=== PATIENT | male | born 1955 | race Caucasian/White ===

== ENCOUNTER 2020-10-10 12:36 | Inpatient (IN) | payer OTHER, SELFPAY ==
[~2020-10-10] VITALS: Ht 162.6 cm; Wt 115.7 kg
[2020-10-10 12:44] VITALS: BP 97/59
[2020-10-10] MEDS ORDERED: NACL 0.9% 1,000 ML IV ONE (12:45)
[2020-10-10 13:08] LABS: BASOPHILS % (AUTO) 0.1 % (0.0-2.0); HEMATOCRIT 49.1 % (36-52); HEMOGLOBIN 16.8 g/dL (12.0-18.0); LYMPHOCYTES # (AUTO) 0.6 K/uL (2.0-11.5); LYMPHOCYTES % (AUTO) 8.9 % (20.5-51.1); MEAN CORPUSCULAR HEMOGLOBIN 31 pg (27-31); MEAN CORPUSCULAR HGB CONC 34 g/dL (33-37); MEAN CORPUSCULAR VOLUME 92.1 fL (80-94); MONOCYTES # (AUTO) 0.6 K/uL (0.8-1.0); MONOCYTES % (AUTO) 8.1 % (1.7-9.3); NEUTROPHILS # (AUTO) 5.6 K/uL (1.8-7.7); NEUTROPHILS % (AUTO) 82.9 % (42.2-75.2); PLATELET COUNT (AUTO) 178 K/uL (140-450); RED BLOOD CELL COUNT(AUTO) 5.33 MIL/uL (4.20-6.10); RED CELL DISTRIBUTION WIDTH 13.1 % (11.6-13.7); WHITE BLOOD COUNT (AUTO) 6.8 K/uL (4.8-10.8)
[2020-10-10 13:21] LABS: ANION GAP 19.1 (8-16); CARBON DIOXIDE 24.5 mmol/L (21-32); CREATININE 1.7 mg/dL (0.6-1.3); POTASSIUM 3.6 mmol/L (3.5-5.1)
[2020-10-10 13:27] LABS: ALBUMIN 3.9 g/dL (3.4-5.0); TOTAL BILIRUBIN 0.8 mg/dL (0.0-1.0)
[2020-10-10 13:28] LABS: PROTHROMBIN TIME 10.3 secs (10.8-13.4)
[2020-10-10] MEDS ORDERED: AZITHROMYCIN 1,000 MG in DEXTROSE 5% 500 ML IV SCH (13:50)
[2020-10-10 13:53] LABS: RSV NEGATIVE (NEGATIVE)
[2020-10-10 13:53] LABS: LACTATE DEHYDROGENASE 318 U/L (85-227)
[2020-10-10] MEDS ORDERED: ONDANSETRON 4 MG/2 ML VIAL IM/IVP PRN (14:20)
[2020-10-10] MEDS ORDERED: ZOLPIDEM 5 MG TAB PO PRN (14:20)
[2020-10-10] MEDS ORDERED: DOCUSATE SODIUM 100 MG GELCAP PO PRN (14:20)
[2020-10-10] MEDS ORDERED: POTASSIUM CHLORIDE 10 MEQ TABER PO PRN (14:20)
[2020-10-10] MEDS ORDERED: cefTRIAXone 1,000 MG VIAL ONE (14:21)
[2020-10-10] MEDS ORDERED: ALBUTEROL HFA MDI 90 MCG/ACTUATION 8 GM INH PRN (14:25)
[2020-10-10] MEDS: ACETAMINOPHEN 325 MG TAB PO PRN ×2 (14:26→16:56)
[2020-10-10] MEDS ORDERED: remdesivir CLINICAL MONITORING 1 EA MISC MC PRN (14:40)
[2020-10-10] MEDS ORDERED: OSELTAMIVIR PHOSPHATE 75 MG CAP PO SCH (14:50)
[2020-10-10 14:59] LABS: CHOL/HDL RATIO 5.3 (1-4.5); FREE T4 (FREE THYROXINE) 0.86 ng/dL (0.76-1.46); MAGNESIUM 2.5 mg/dL (1.8-2.4); PHOSPHORUS 3.5 mg/dL (2.5-4.9); THYROID STIMULATING HORMONE 2.47 uIU/mL (0.34-3.74)
[2020-10-10] MEDS: NACL 0.9% 1,000 ML IV SCH (15:03)
[2020-10-10 15:14] LABS: APPEARANCE,URINE CLEAR (CLEAR); BILIRUBIN,URINE 1+ (NEGATIVE); BLOOD, URINE TRACE-I (NEGATIVE); COLOR,URINE YELLOW (YELLOW); LEUKOCYTE ESTERASE ,URINE TRACE (NEGATIVE); NITRITE, URINE NEGATIVE (NEGATIVE); PH,URINE 5.5 (5.0-9.0); UGLUCOSE NEGATIVE (NEGATIVE)
[2020-10-10] MEDS ORDERED: AZITHROMYCIN 500 MG INJ VIAL IV ONE (15:18)
[2020-10-10 15:29] LABS: BARBITURATE, URINE NEGATIVE ng/ml (NEG <=200); BENZODIAZEPINE, URINE NEGATIVE ng/mL (NEG <=200); CANNABINOID, URINE NEGATIVE ng/mL (NEG <=50); COCAINE, URINE NEGATIVE ng/mL (NEG <=300); OPIATE, URINE NEGATIVE ng/mL (NEG <=2000); PHENCYCLIDINE SCREEN,URINE NEGATIVE ng/mL (NEG <=25)
[2020-10-10 16:11] LABS: RBC,URINE FEW /HPF (0-5); WBC,URINE 0-5 /HPF (0-5)
[2020-10-10 16:13] LABS: C-REACTIVE PROTEIN QUANT 8.6 mg/dL (0.0-0.9)
[2020-10-10 16:30] VITALS: BP 150/90
[2020-10-10] MEDS ORDERED: REMDESIVIR (EUA) 200 MG in NACL 0.9% 100 ML IV SCH (17:00)
[2020-10-10 20:00] VITALS: BP 142/89
[2020-10-10] MEDS: HYDROcodone/APAP 7.5/325 MG 1 TAB PO PRN (21:32)
[2020-10-11] VITALS: BP 129/85
[2020-10-11] MEDS: NACL 0.9% 1,000 ML IV SCH ×2 (00:20→21:26)
[2020-10-11 00:30] VITALS: BP 132/82
[2020-10-11 04:00] VITALS: BP_SYST 132; BP_SYST 161; BP_DIAS 82; BP_DIAS 94
[2020-10-11 05:55] LABS: BASOPHILS % (AUTO) 0.2 % (0.0-2.0); EOSINOPHILS % (AUTO) 0.1 % (0.0-4.0); HEMATOCRIT 44.6 % (36-52); HEMOGLOBIN 15.1 g/dL (12.0-18.0); LYMPHOCYTES # (AUTO) 0.7 K/uL (2.0-11.5); LYMPHOCYTES % (AUTO) 11.6 % (20.5-51.1); MEAN CORPUSCULAR HEMOGLOBIN 31 pg (27-31); MEAN CORPUSCULAR HGB CONC 34 g/dL (33-37); MEAN CORPUSCULAR VOLUME 92.3 fL (80-94); MONOCYTES # (AUTO) 0.5 K/uL (0.8-1.0); MONOCYTES % (AUTO) 8.2 % (1.7-9.3); NEUTROPHILS # (AUTO) 4.7 K/uL (1.8-7.7); NEUTROPHILS % (AUTO) 79.9 % (42.2-75.2); PLATELET COUNT (AUTO) 175 K/uL (140-450); RED BLOOD CELL COUNT(AUTO) 4.83 MIL/uL (4.20-6.10); RED CELL DISTRIBUTION WIDTH 13.1 % (11.6-13.7); WHITE BLOOD COUNT (AUTO) 5.9 K/uL (4.8-10.8)
[2020-10-11 06:48] LABS: ALBUMIN 3.2 g/dL (3.4-5.0); ANION GAP 16.7 (8-16); CARBON DIOXIDE 24.9 mmol/L (21-32); CREATININE 1.2 mg/dL (0.6-1.3); POTASSIUM 3.6 mmol/L (3.5-5.1); TOTAL BILIRUBIN 0.8 mg/dL (0.0-1.0)
[2020-10-11 08:07] LABS: T4 (THYROXINE) 8.8 ug/dL (4.5-12.0)
[2020-10-11] MEDS ORDERED: COMMUNICATION ORDER MC SCH (09:00)
[2020-10-11] MEDS: PANTOPRAZOLE 40 MG TABEC PO SCH (09:44)
[2020-10-11] MEDS: ZINC SULF 220 MG CAP PO SCH (09:44)
[2020-10-11] MEDS: ASCORBIC ACID 500 MG TAB PO SCH (09:44)
[2020-10-11 10:44] VITALS: BP 140/88
[2020-10-11] MEDS: ACETAMINOPHEN 325 MG TAB PO PRN (12:33)
[2020-10-11] MEDS: REMDESIVIR (EUA) 100 MG in NACL 0.9% 100 ML IV SCH (17:32)
[2020-10-11 18:17] VITALS: BP 132/91
[2020-10-11 20:00] VITALS: BP 141/88
[2020-10-12] VITALS: BP 115/71
[2020-10-12 04:00] VITALS: BP 147/66
[2020-10-12 05:36] LABS: BASOPHILS % (AUTO) 0.1 % (0.0-2.0); HEMATOCRIT 45.5 % (36-52); HEMOGLOBIN 15.1 g/dL (12.0-18.0); LYMPHOCYTES # (AUTO) 0.8 K/uL (2.0-11.5); LYMPHOCYTES % (AUTO) 9.9 % (20.5-51.1); MEAN CORPUSCULAR HEMOGLOBIN 31 pg (27-31); MEAN CORPUSCULAR HGB CONC 33 g/dL (33-37); MEAN CORPUSCULAR VOLUME 92.9 fL (80-94); MONOCYTES # (AUTO) 0.6 K/uL (0.8-1.0); MONOCYTES % (AUTO) 7.7 % (1.7-9.3); NEUTROPHILS # (AUTO) 6.5 K/uL (1.8-7.7); NEUTROPHILS % (AUTO) 82.3 % (42.2-75.2); PLATELET COUNT (AUTO) 205 K/uL (140-450); RED BLOOD CELL COUNT(AUTO) 4.89 MIL/uL (4.20-6.10); RED CELL DISTRIBUTION WIDTH 13.1 % (11.6-13.7); WHITE BLOOD COUNT (AUTO) 7.8 K/uL (4.8-10.8)
[2020-10-12] MEDS: NACL 0.9% 1,000 ML IV SCH ×2 (06:09→16:53)
[2020-10-12 06:13] LABS: ALBUMIN 3.1 g/dL (3.4-5.0); ANION GAP 14.6 (8-16); CARBON DIOXIDE 26.3 mmol/L (21-32); CREATININE 1.1 mg/dL (0.6-1.3); POTASSIUM 3.9 mmol/L (3.5-5.1); TOTAL BILIRUBIN 0.6 mg/dL (0.0-1.0)
[2020-10-12] MEDS: PANTOPRAZOLE 40 MG TABEC PO SCH (09:00)
[2020-10-12] MEDS: ASCORBIC ACID 500 MG TAB PO SCH (09:00)
[2020-10-12] MEDS: ZINC SULF 220 MG CAP PO SCH (09:00)
[2020-10-12 09:13] VITALS: BP 152/84
[2020-10-12 15:56] VITALS: BP 133/82
[2020-10-12 15:57] VITALS: BP 159/99
[2020-10-12] MEDS: ACETAMINOPHEN 325 MG TAB PO PRN (15:58)
[2020-10-12] MEDS: REMDESIVIR (EUA) 100 MG in NACL 0.9% 100 ML IV SCH (16:53)
[2020-10-12 20:00] VITALS: BP 145/95
[2020-10-13] VITALS: BP 151/87
[2020-10-13] MEDS: guaiFENesin DM 200/20 MG-10 ML 10 ML UDC PO PRN (00:03)
[2020-10-13] MEDS: NACL 0.9% 1,000 ML IV SCH ×3 (02:45→22:24)
[2020-10-13 05:00] VITALS: BP 152/90
[2020-10-13 06:09] LABS: BASOPHILS % (AUTO) 0.2 % (0.0-2.0); HEMATOCRIT 43.1 % (36-52); HEMOGLOBIN 14.4 g/dL (12.0-18.0); LYMPHOCYTES # (AUTO) 0.8 K/uL (2.0-11.5); LYMPHOCYTES % (AUTO) 8.1 % (20.5-51.1); MEAN CORPUSCULAR HEMOGLOBIN 31 pg (27-31); MEAN CORPUSCULAR HGB CONC 33 g/dL (33-37); MEAN CORPUSCULAR VOLUME 93.9 fL (80-94); MONOCYTES # (AUTO) 0.7 K/uL (0.8-1.0); MONOCYTES % (AUTO) 7.2 % (1.7-9.3); NEUTROPHILS # (AUTO) 8.1 K/uL (1.8-7.7); NEUTROPHILS % (AUTO) 84.5 % (42.2-75.2); PLATELET COUNT (AUTO) 225 K/uL (140-450); RED BLOOD CELL COUNT(AUTO) 4.59 MIL/uL (4.20-6.10); RED CELL DISTRIBUTION WIDTH 12.8 % (11.6-13.7); WHITE BLOOD COUNT (AUTO) 9.6 K/uL (4.8-10.8)
[2020-10-13 06:47] LABS: ANION GAP 10.5 (8-16); CARBON DIOXIDE 27.6 mmol/L (21-32); CREATININE 0.9 mg/dL (0.6-1.3); POTASSIUM 4.1 mmol/L (3.5-5.1); TOTAL BILIRUBIN 0.4 mg/dL (0.0-1.0)
[2020-10-13 08:00] VITALS: BP 173/102
[2020-10-13] MEDS: lisinopriL 20 MG TAB PO SCH (08:55)
[2020-10-13] MEDS: METOPROLOL 25 MG TAB PO SCH ×2 (08:55→20:32)
[2020-10-13] MEDS: PANTOPRAZOLE 40 MG TABEC PO SCH (08:56)
[2020-10-13] MEDS: ZINC SULF 220 MG CAP PO SCH (08:56)
[2020-10-13] MEDS: ASCORBIC ACID 500 MG TAB PO SCH (08:58)
[2020-10-13 12:00] VITALS: BP 152/92
[2020-10-13 16:00] VITALS: BP 136/89
[2020-10-13] MEDS: REMDESIVIR (EUA) 100 MG in NACL 0.9% 100 ML IV SCH (17:22)
[2020-10-13] MEDS: ACETAMINOPHEN 325 MG TAB PO PRN (17:28)
[2020-10-13 20:00] VITALS: BP 139/88
[2020-10-14] VITALS: BP 148/83
[2020-10-14] MEDS: HYDROcodone/APAP 7.5/325 MG 1 TAB PO PRN (03:47)
[2020-10-14] MEDS: guaiFENesin DM 200/20 MG-10 ML 10 ML UDC PO PRN ×2 (03:48→20:31)
[2020-10-14 04:00] VITALS: BP 146/86
[2020-10-14 06:39] LABS: ALBUMIN 2.9 g/dL (3.4-5.0); CARBON DIOXIDE 26.1 mmol/L (21-32); CREATININE 0.9 mg/dL (0.6-1.3); POTASSIUM 4.1 mmol/L (3.5-5.1); TOTAL BILIRUBIN 0.6 mg/dL (0.0-1.0)
[2020-10-14 08:00] VITALS: BP 160/97
[2020-10-14] MEDS: ZINC SULF 220 MG CAP PO SCH (09:21)
[2020-10-14] MEDS: ASCORBIC ACID 500 MG TAB PO SCH (09:21)
[2020-10-14] MEDS: lisinopriL 20 MG TAB PO SCH (09:21)
[2020-10-14] MEDS: PANTOPRAZOLE 40 MG TABEC PO SCH (09:21)
[2020-10-14] MEDS: METOPROLOL 25 MG TAB PO SCH ×2 (09:22→20:27)
[2020-10-14] MEDS: NACL 0.9% 1,000 ML IV SCH ×3 (09:22→20:42)
[2020-10-14 12:00] VITALS: BP 139/93
[2020-10-14] MEDS: ACETAMINOPHEN 325 MG TAB PO PRN ×2 (12:01→20:31)
[2020-10-14 16:00] VITALS: BP 135/80
[2020-10-14] MEDS: REMDESIVIR (EUA) 100 MG in NACL 0.9% 100 ML IV SCH (17:25)
[2020-10-14 20:00] VITALS: BP 155/92
[2020-10-14] MEDS: OSELTAMIVIR PHOSPHATE 75 MG CAP PO SCH (21:28)
[2020-10-15] VITALS (7 sets, daily range): BP systolic 143–170; BP diastolic 83–110
[2020-10-15] MEDS: guaiFENesin DM 200/20 MG-10 ML 10 ML UDC PO PRN ×4 (03:03→21:50)
[2020-10-15] MEDS: ACETAMINOPHEN 325 MG TAB PO PRN ×3 (03:17→15:24)
[2020-10-15] MEDS: ASCORBIC ACID 500 MG TAB PO SCH (08:04)
[2020-10-15] MEDS: ZINC SULF 220 MG CAP PO SCH (08:04)
[2020-10-15] MEDS: PANTOPRAZOLE 40 MG TABEC PO SCH (08:04)
[2020-10-15] MEDS: METOPROLOL 25 MG TAB PO SCH ×2 (08:04→21:48)
[2020-10-15] MEDS: OSELTAMIVIR PHOSPHATE 75 MG CAP PO SCH ×2 (08:04→21:48)
[2020-10-15] MEDS: NACL 0.9% 1,000 ML IV SCH (08:05)
[2020-10-15] MEDS: lisinopriL 20 MG TAB PO SCH (08:05)
[2020-10-15 16:35] LABS: BASOPHILS % (AUTO) 0.2 % (0.0-2.0); HEMATOCRIT 43.1 % (36-52); HEMOGLOBIN 14.2 g/dL (12.0-18.0); LYMPHOCYTES # (AUTO) 0.3 K/uL (2.0-11.5); LYMPHOCYTES % (AUTO) 2.3 % (20.5-51.1); MEAN CORPUSCULAR HEMOGLOBIN 31 pg (27-31); MEAN CORPUSCULAR HGB CONC 33 g/dL (33-37); MEAN CORPUSCULAR VOLUME 94.5 fL (80-94); MONOCYTES # (AUTO) 0.4 K/uL (0.8-1.0); MONOCYTES % (AUTO) 3.2 % (1.7-9.3); NEUTROPHILS # (AUTO) 12.6 K/uL (1.8-7.7); NEUTROPHILS % (AUTO) 94.3 % (42.2-75.2); PLATELET COUNT (AUTO) 321 K/uL (140-450); RED BLOOD CELL COUNT(AUTO) 4.57 MIL/uL (4.20-6.10); RED CELL DISTRIBUTION WIDTH 13.4 % (11.6-13.7); WHITE BLOOD COUNT (AUTO) 13.3 K/uL (4.8-10.8)
[2020-10-15 16:53] LABS: ALBUMIN 2.6 g/dL (3.4-5.0); ANION GAP 13.2 (8-16); CREATININE 0.9 mg/dL (0.6-1.3); POTASSIUM 4.2 mmol/L (3.5-5.1); TOTAL BILIRUBIN 0.9 mg/dL (0.0-1.0)
[2020-10-15] MEDS: HYDROcodone/APAP 7.5/325 MG 1 TAB PO PRN (23:12)
[2020-10-16] VITALS: BP 139/84
[2020-10-16] MEDS: NACL 0.9% 1,000 ML IV SCH ×3 (00:20→20:20)
[2020-10-16 04:00] VITALS: BP 153/83
[2020-10-16] MEDS: HYDROcodone/APAP 7.5/325 MG 1 TAB PO PRN ×4 (04:06→22:35)
[2020-10-16] MEDS: guaiFENesin DM 200/20 MG-10 ML 10 ML UDC PO PRN ×3 (04:06→16:36)
[2020-10-16 06:28] LABS: BASOPHILS % (AUTO) 0.3 % (0.0-2.0); EOSINOPHILS % (AUTO) 0.1 % (0.0-4.0); HEMATOCRIT 42.8 % (36-52); HEMOGLOBIN 14.1 g/dL (12.0-18.0); LYMPHOCYTES # (AUTO) 0.6 K/uL (2.0-11.5); MEAN CORPUSCULAR HEMOGLOBIN 31 pg (27-31); MEAN CORPUSCULAR HGB CONC 33 g/dL (33-37); MEAN CORPUSCULAR VOLUME 93.4 fL (80-94); MONOCYTES # (AUTO) 0.9 K/uL (0.8-1.0); MONOCYTES % (AUTO) 5.1 % (1.7-9.3); NEUTROPHILS # (AUTO) 16.1 K/uL (1.8-7.7); PLATELET COUNT (AUTO) 339 K/uL (140-450); RED BLOOD CELL COUNT(AUTO) 4.58 MIL/uL (4.20-6.10); RED CELL DISTRIBUTION WIDTH 13.3 % (11.6-13.7); WHITE BLOOD COUNT (AUTO) 17.6 K/uL (4.8-10.8)
[2020-10-16 06:44] LABS: ANION GAP 11.3 (8-16); CARBON DIOXIDE 28.3 mmol/L (21-32); CREATININE 0.9 mg/dL (0.6-1.3); POTASSIUM 4.6 mmol/L (3.5-5.1)
[2020-10-16] MEDS: ACETAMINOPHEN 325 MG TAB PO PRN (06:44)
[2020-10-16 06:49] LABS: MAGNESIUM 2.6 mg/dL (1.8-2.4); PHOSPHORUS 2.8 mg/dL (2.5-4.9)
[2020-10-16 07:20] LABS: LYMPHOCYTES % (AUTO) 3.2 % (20.5-51.1); NEUTROPHILS % (AUTO) 91.3 % (42.2-75.2)
[2020-10-16 08:00] VITALS: BP 161/94
[2020-10-16] MEDS: ASCORBIC ACID 500 MG TAB PO SCH (09:53)
[2020-10-16] MEDS: OSELTAMIVIR PHOSPHATE 75 MG CAP PO SCH ×2 (09:53→20:25)
[2020-10-16] MEDS: METOPROLOL 25 MG TAB PO SCH ×2 (09:53→20:25)
[2020-10-16] MEDS: PANTOPRAZOLE 40 MG TABEC PO SCH (09:54)
[2020-10-16] MEDS: ZINC SULF 220 MG CAP PO SCH (09:54)
[2020-10-16] MEDS: lisinopriL 20 MG TAB PO SCH (09:54)
[2020-10-16 12:00] VITALS: BP 150/92
[2020-10-16] MEDS ORDERED: LORazepam 2 MG/ML VIAL IM/IVP PRN (14:15)
[2020-10-16] MEDS: BENZONATATE 100 MG CAPLF PO PRN ×2 (14:32→22:35)
[2020-10-16 16:00] VITALS: BP 132/67
[2020-10-16] MEDS ORDERED: lisinopriL 20 MG TAB PO SCH (17:25)
[2020-10-16 20:00] VITALS: BP 146/75
[2020-10-17] VITALS: BP 120/66
[2020-10-17] MEDS: guaiFENesin DM 200/20 MG-10 ML 10 ML UDC PO PRN ×3 (03:07→17:35)
[2020-10-17 04:00] VITALS: BP 139/80
[2020-10-17] MEDS: LORazepam 2 MG/ML VIAL IM/IVP PRN ×2 (06:17→21:10)
[2020-10-17] MEDS: NACL 0.9% 1,000 ML IV SCH ×2 (06:20→14:23)
[2020-10-17] MEDS: BENZONATATE 100 MG CAPLF PO PRN ×3 (06:40→23:04)
[2020-10-17 06:41] LABS: BASOPHILS % (AUTO) 0.3 % (0.0-2.0); EOSINOPHILS % (AUTO) 0.2 % (0.0-4.0); HEMATOCRIT 38.1 % (36-52); HEMOGLOBIN 12.6 g/dL (12.0-18.0); LYMPHOCYTES # (AUTO) 0.5 K/uL (2.0-11.5); LYMPHOCYTES % (AUTO) 3.3 % (20.5-51.1); MEAN CORPUSCULAR HEMOGLOBIN 31 pg (27-31); MEAN CORPUSCULAR HGB CONC 33 g/dL (33-37); MEAN CORPUSCULAR VOLUME 92.6 fL (80-94); MONOCYTES # (AUTO) 0.8 K/uL (0.8-1.0); MONOCYTES % (AUTO) 5.3 % (1.7-9.3); NEUTROPHILS # (AUTO) 13.3 K/uL (1.8-7.7); NEUTROPHILS % (AUTO) 90.9 % (42.2-75.2); PLATELET COUNT (AUTO) 292 K/uL (140-450); RED BLOOD CELL COUNT(AUTO) 4.12 MIL/uL (4.20-6.10); RED CELL DISTRIBUTION WIDTH 13.1 % (11.6-13.7); WHITE BLOOD COUNT (AUTO) 14.6 K/uL (4.8-10.8)
[2020-10-17 06:56] LABS: MAGNESIUM 2.3 mg/dL (1.8-2.4); PHOSPHORUS 3.6 mg/dL (2.5-4.9)
[2020-10-17 07:12] LABS: ANION GAP 14.5 (8-16); CARBON DIOXIDE 25.8 mmol/L (21-32); CREATININE 0.9 mg/dL (0.6-1.3); POTASSIUM 4.3 mmol/L (3.5-5.1)
[2020-10-17 08:00] VITALS: BP 135/82
[2020-10-17] MEDS: lisinopriL 20 MG TAB PO SCH (09:06)
[2020-10-17] MEDS: METOPROLOL 25 MG TAB PO SCH ×2 (09:07→20:39)
[2020-10-17] MEDS: ZINC SULF 220 MG CAP PO SCH (09:07)
[2020-10-17] MEDS: OSELTAMIVIR PHOSPHATE 75 MG CAP PO SCH ×2 (09:07→20:39)
[2020-10-17] MEDS: PANTOPRAZOLE 40 MG TABEC PO SCH (09:07)
[2020-10-17] MEDS: ASCORBIC ACID 500 MG TAB PO SCH (09:07)
[2020-10-17 12:00] VITALS: BP 141/75
[2020-10-17 16:00] VITALS: BP 150/87
[2020-10-17 20:00] VITALS: BP 142/82
[2020-10-18] VITALS: BP 150/95
[2020-10-18] MEDS: NACL 0.9% 1,000 ML IV SCH ×3 (01:13→22:20)
[2020-10-18] MEDS: guaiFENesin DM 200/20 MG-10 ML 10 ML UDC PO PRN ×3 (02:57→21:11)
[2020-10-18 04:00] VITALS: BP 150/96
[2020-10-18] MEDS: LORazepam 2 MG/ML VIAL IM/IVP PRN (05:39)
[2020-10-18 06:21] LABS: ANION GAP 11.7 (8-16); CARBON DIOXIDE 26.6 mmol/L (21-32); CREATININE 0.9 mg/dL (0.6-1.3); POTASSIUM 4.3 mmol/L (3.5-5.1)
[2020-10-18 06:24] LABS: EOSINOPHILS % (AUTO) 0.1 % (0.0-4.0); HEMATOCRIT 39.9 % (36-52); HEMOGLOBIN 13.2 g/dL (12.0-18.0); LYMPHOCYTES # (AUTO) 0.6 K/uL (2.0-11.5); LYMPHOCYTES % (AUTO) 4.4 % (20.5-51.1); MEAN CORPUSCULAR HEMOGLOBIN 31 pg (27-31); MEAN CORPUSCULAR HGB CONC 33 g/dL (33-37); MEAN CORPUSCULAR VOLUME 93.4 fL (80-94); MONOCYTES # (AUTO) 0.8 K/uL (0.8-1.0); MONOCYTES % (AUTO) 5.5 % (1.7-9.3); NEUTROPHILS # (AUTO) 13.2 K/uL (1.8-7.7); PLATELET COUNT (AUTO) 261 K/uL (140-450); RED BLOOD CELL COUNT(AUTO) 4.27 MIL/uL (4.20-6.10); RED CELL DISTRIBUTION WIDTH 13.5 % (11.6-13.7); WHITE BLOOD COUNT (AUTO) 14.6 K/uL (4.8-10.8)
[2020-10-18 06:31] LABS: MAGNESIUM 2.3 mg/dL (1.8-2.4)
[2020-10-18 08:00] VITALS: BP 145/89
[2020-10-18] MEDS: lisinopriL 20 MG TAB PO SCH (09:35)
[2020-10-18] MEDS: PANTOPRAZOLE 40 MG TABEC PO SCH (09:36)
[2020-10-18] MEDS: METOPROLOL 25 MG TAB PO SCH ×2 (09:36→21:04)
[2020-10-18] MEDS: OSELTAMIVIR PHOSPHATE 75 MG CAP PO SCH ×2 (09:37→21:04)
[2020-10-18] MEDS: BENZONATATE 100 MG CAPLF PO PRN ×2 (09:37→18:04)
[2020-10-18] MEDS: ZINC SULF 220 MG CAP PO SCH (09:37)
[2020-10-18] MEDS: ASCORBIC ACID 500 MG TAB PO SCH (09:37)
[2020-10-18] MEDS: ACETAMINOPHEN 325 MG TAB PO PRN (15:43)
[2020-10-18 16:00] VITALS: BP 140/84
[2020-10-18 20:00] VITALS: BP 148/84
[2020-10-19] VITALS: BP 83/53
[2020-10-19 04:00] VITALS: BP 90/60
[2020-10-19 06:14] LABS: BASOPHILS % (AUTO) 0.2 % (0.0-2.0); HEMATOCRIT 39.7 % (36-52); LYMPHOCYTES # (AUTO) 0.5 K/uL (2.0-11.5); LYMPHOCYTES % (AUTO) 3.7 % (20.5-51.1); MEAN CORPUSCULAR HEMOGLOBIN 31 pg (27-31); MEAN CORPUSCULAR HGB CONC 33 g/dL (33-37); MEAN CORPUSCULAR VOLUME 93.3 fL (80-94); MONOCYTES # (AUTO) 0.7 K/uL (0.8-1.0); MONOCYTES % (AUTO) 4.6 % (1.7-9.3); NEUTROPHILS # (AUTO) 13.4 K/uL (1.8-7.7); NEUTROPHILS % (AUTO) 91.5 % (42.2-75.2); PLATELET COUNT (AUTO) 232 K/uL (140-450); RED BLOOD CELL COUNT(AUTO) 4.26 MIL/uL (4.20-6.10); RED CELL DISTRIBUTION WIDTH 13.2 % (11.6-13.7); WHITE BLOOD COUNT (AUTO) 14.6 K/uL (4.8-10.8)
[2020-10-19 06:45] LABS: CARBON DIOXIDE 25.6 mmol/L (21-32); CREATININE 0.9 mg/dL (0.6-1.3); MAGNESIUM 2.6 mg/dL (1.8-2.4); PHOSPHORUS 4.1 mg/dL (2.5-4.9); POTASSIUM 4.6 mmol/L (3.5-5.1)
[2020-10-19 09:05] VITALS: BP 138/85
[2020-10-19] MEDS: lisinopriL 20 MG TAB PO SCH (10:10)
[2020-10-19] MEDS: METOPROLOL 25 MG TAB PO SCH ×2 (10:10→22:33)
[2020-10-19] MEDS: PANTOPRAZOLE 40 MG TABEC PO SCH (10:11)
[2020-10-19] MEDS: BENZONATATE 100 MG CAPLF PO PRN (10:11)
[2020-10-19] MEDS: ASCORBIC ACID 500 MG TAB PO SCH (10:12)
[2020-10-19] MEDS: ZINC SULF 220 MG CAP PO SCH (10:12)
[2020-10-19] MEDS ORDERED: OSELTAMIVIR PHOSPHATE 75 MG CAP ONE (10:17)
[2020-10-19] MEDS: OSELTAMIVIR PHOSPHATE 75 MG CAP PO SCH (10:18)
[2020-10-19] MEDS: NACL 0.9% 1,000 ML IV SCH ×2 (10:18→19:55)
[2020-10-19 13:03] VITALS: BP 126/72
[2020-10-19 17:15] VITALS: BP 118/88
[2020-10-19] MEDS: guaiFENesin DM 200/20 MG-10 ML 10 ML UDC PO PRN (18:00)
[2020-10-19] MEDS: ACETAMINOPHEN 325 MG TAB PO PRN (18:01)
[2020-10-19] MEDS: LORazepam 2 MG/ML VIAL IM/IVP PRN (19:47)
[2020-10-19 20:00] VITALS: BP 154/79
[2020-10-19] MEDS ORDERED: VANCOMYCIN PER PHARMACY MC PRN ×2 (21:30)
[2020-10-19] MEDS ORDERED: VANCOMYCIN 1,000 MG VIAL ONE (22:25)
[2020-10-19] MEDS ORDERED: VANCOMYCIN 1GM/DEXT 5% PREMIX 200 ML IV ONE (23:00)
[2020-10-20] VITALS: BP 122/75
[2020-10-20 06:10] LABS: BASOPHILS % (AUTO) 0.2 % (0.0-2.0); EOSINOPHILS % (AUTO) 0.2 % (0.0-4.0); HEMOGLOBIN 13.5 g/dL (12.0-18.0); LYMPHOCYTES # (AUTO) 0.7 K/uL (2.0-11.5); LYMPHOCYTES % (AUTO) 4.5 % (20.5-51.1); MEAN CORPUSCULAR HEMOGLOBIN 30 pg (27-31); MEAN CORPUSCULAR HGB CONC 33 g/dL (33-37); MEAN CORPUSCULAR VOLUME 92.6 fL (80-94); MONOCYTES # (AUTO) 0.7 K/uL (0.8-1.0); MONOCYTES % (AUTO) 4.7 % (1.7-9.3); NEUTROPHILS # (AUTO) 14.3 K/uL (1.8-7.7); NEUTROPHILS % (AUTO) 90.4 % (42.2-75.2); PLATELET COUNT (AUTO) 213 K/uL (140-450); RED BLOOD CELL COUNT(AUTO) 4.43 MIL/uL (4.20-6.10); WHITE BLOOD COUNT (AUTO) 15.8 K/uL (4.8-10.8)
[2020-10-20] MEDS: NACL 0.9% 1,000 ML IV SCH ×2 (06:22→14:49)
[2020-10-20 06:43] LABS: ALBUMIN 2.4 g/dL (3.4-5.0); ANION GAP 15.1 (8-16); CARBON DIOXIDE 25.5 mmol/L (21-32); CREATININE 0.9 mg/dL (0.6-1.3); MAGNESIUM 2.4 mg/dL (1.8-2.4); PHOSPHORUS 3.6 mg/dL (2.5-4.9); POTASSIUM 4.6 mmol/L (3.5-5.1); TOTAL BILIRUBIN 0.6 mg/dL (0.0-1.0)
[2020-10-20] MEDS: lisinopriL 20 MG TAB PO SCH (09:20)
[2020-10-20] MEDS: ZINC SULF 220 MG CAP PO SCH (09:20)
[2020-10-20] MEDS: PANTOPRAZOLE 40 MG TABEC PO SCH (09:21)
[2020-10-20] MEDS: ACETAMINOPHEN 325 MG TAB PO PRN (09:21)
[2020-10-20] MEDS: BENZONATATE 100 MG CAPLF PO PRN (09:21)
[2020-10-20] MEDS: ASCORBIC ACID 500 MG TAB PO SCH (09:21)
[2020-10-20] MEDS: METOPROLOL 25 MG TAB PO SCH ×2 (09:22→20:30)
[2020-10-20] MEDS: guaiFENesin DM 200/20 MG-10 ML 10 ML UDC PO PRN ×2 (09:22→20:40)
[2020-10-20] MEDS: ENOXAPARIN 40 MG/0.4 ML SYR SUBQ SCH (09:24)
[2020-10-20 10:00] VITALS: BP 126/72
[2020-10-20] MEDS: VANCOMYCIN 1,500 MG in DEXTROSE 5% 500 ML IV SCH ×2 (11:36→22:20)
[2020-10-20 12:00] VITALS: BP 114/72
[2020-10-20 18:30] VITALS: BP 113/68
[2020-10-20] MEDS: LORazepam 2 MG/ML VIAL IM/IVP PRN (20:41)
[2020-10-21] VITALS: BP 122/76
[2020-10-21] MEDS: NACL 0.9% 1,000 ML IV SCH ×3 (01:09→20:14)
[2020-10-21] MEDS: LORazepam 2 MG/ML VIAL IM/IVP PRN (03:22)
[2020-10-21] MEDS: guaiFENesin DM 200/20 MG-10 ML 10 ML UDC PO PRN ×2 (03:36→20:33)
[2020-10-21 04:00] VITALS: BP 118/86
[2020-10-21 05:49] LABS: BASOPHILS # (AUTO) 0.1 K/uL (0.00-0.22); BASOPHILS % (AUTO) 0.4 % (0.0-2.0); EOSINOPHILS # (AUTO) 0.3 K/uL (0-0.4); EOSINOPHILS % (AUTO) 1.8 % (0.0-4.0); HEMATOCRIT 39.5 % (36-52); HEMOGLOBIN 13.1 g/dL (12.0-18.0); LYMPHOCYTES # (AUTO) 0.6 K/uL (2.0-11.5); LYMPHOCYTES % (AUTO) 3.8 % (20.5-51.1); MEAN CORPUSCULAR HEMOGLOBIN 31 pg (27-31); MEAN CORPUSCULAR HGB CONC 33 g/dL (33-37); MEAN CORPUSCULAR VOLUME 93.9 fL (80-94); MONOCYTES # (AUTO) 0.6 K/uL (0.8-1.0); MONOCYTES % (AUTO) 3.7 % (1.7-9.3); NEUTROPHILS # (AUTO) 15.2 K/uL (1.8-7.7); NEUTROPHILS % (AUTO) 90.3 % (42.2-75.2); PLATELET COUNT (AUTO) 218 K/uL (140-450); RED BLOOD CELL COUNT(AUTO) 4.21 MIL/uL (4.20-6.10); RED CELL DISTRIBUTION WIDTH 13.2 % (11.6-13.7); WHITE BLOOD COUNT (AUTO) 16.8 K/uL (4.8-10.8)
[2020-10-21 07:08] LABS: ALBUMIN 2.3 g/dL (3.4-5.0); ANION GAP 19.6 (8-16); CARBON DIOXIDE 22.9 mmol/L (21-32); CREATININE 0.9 mg/dL (0.6-1.3); MAGNESIUM 2.3 mg/dL (1.8-2.4); PHOSPHORUS 3.5 mg/dL (2.5-4.9); POTASSIUM 4.5 mmol/L (3.5-5.1); TOTAL BILIRUBIN 0.9 mg/dL (0.0-1.0)
[2020-10-21] MEDS: ASCORBIC ACID 500 MG TAB PO SCH (08:38)
[2020-10-21] MEDS: lisinopriL 20 MG TAB PO SCH (08:39)
[2020-10-21] MEDS: METOPROLOL 25 MG TAB PO SCH ×2 (08:39→20:24)
[2020-10-21] MEDS: PANTOPRAZOLE 40 MG TABEC PO SCH (08:39)
[2020-10-21] MEDS: MORPHINE SULFATE 4 MG/ML SYR IVP PRN (08:39)
[2020-10-21] MEDS: ENOXAPARIN 40 MG/0.4 ML SYR SUBQ SCH (08:42)
[2020-10-21 10:10] VITALS: BP 122/79
[2020-10-21] MEDS: ZINC SULF 220 MG CAP PO SCH (11:24)
[2020-10-21] MEDS: VANCOMYCIN 1,500 MG in DEXTROSE 5% 500 ML IV SCH (11:24)
[2020-10-21 18:00] VITALS: BP 112/61
[2020-10-21 20:00] VITALS: BP 115/67
[2020-10-21] MEDS: ACETAMINOPHEN 325 MG TAB PO PRN (20:26)
[2020-10-22] VITALS: BP 130/77
[2020-10-22 04:00] VITALS: BP 139/76
[2020-10-22] MEDS: NACL 0.9% 1,000 ML IV SCH ×2 (05:30→16:32)
[2020-10-22] MEDS: guaiFENesin DM 200/20 MG-10 ML 10 ML UDC PO PRN ×3 (05:31→18:00)
[2020-10-22 07:30] LABS: BASOPHILS % (AUTO) 0.1 % (0.0-2.0); EOSINOPHILS # (AUTO) 0.1 K/uL (0-0.4); EOSINOPHILS % (AUTO) 0.5 % (0.0-4.0); HEMATOCRIT 38.3 % (36-52); HEMOGLOBIN 12.6 g/dL (12.0-18.0); LYMPHOCYTES # (AUTO) 0.4 K/uL (2.0-11.5); LYMPHOCYTES % (AUTO) 2.3 % (20.5-51.1); MEAN CORPUSCULAR HEMOGLOBIN 31 pg (27-31); MEAN CORPUSCULAR HGB CONC 33 g/dL (33-37); MEAN CORPUSCULAR VOLUME 93.2 fL (80-94); MONOCYTES # (AUTO) 0.6 K/uL (0.8-1.0); MONOCYTES % (AUTO) 3.3 % (1.7-9.3); NEUTROPHILS # (AUTO) 16.6 K/uL (1.8-7.7); NEUTROPHILS % (AUTO) 93.8 % (42.2-75.2); PLATELET COUNT (AUTO) 178 K/uL (140-450); RED BLOOD CELL COUNT(AUTO) 4.11 MIL/uL (4.20-6.10); RED CELL DISTRIBUTION WIDTH 13.2 % (11.6-13.7); WHITE BLOOD COUNT (AUTO) 17.7 K/uL (4.8-10.8)
[2020-10-22 07:59] LABS: ALBUMIN 2.1 g/dL (3.4-5.0); ANION GAP 15.5 (8-16); CARBON DIOXIDE 21.7 mmol/L (21-32); CREATININE 1.4 mg/dL (0.6-1.3); MAGNESIUM 2.5 mg/dL (1.8-2.4); PHOSPHORUS 3.4 mg/dL (2.5-4.9); POTASSIUM 4.2 mmol/L (3.5-5.1); TOTAL BILIRUBIN 1.3 mg/dL (0.0-1.0)
[2020-10-22 08:00] VITALS: BP 130/76
[2020-10-22] MEDS: ASCORBIC ACID 500 MG TAB PO SCH (08:14)
[2020-10-22] MEDS: BENZONATATE 100 MG CAPLF PO PRN ×3 (08:15→16:32)
[2020-10-22] MEDS: ZINC SULF 220 MG CAP PO SCH (08:15)
[2020-10-22] MEDS: PANTOPRAZOLE 40 MG TABEC PO SCH (08:15)
[2020-10-22] MEDS: lisinopriL 20 MG TAB PO SCH (08:15)
[2020-10-22] MEDS: METOPROLOL 25 MG TAB PO SCH ×2 (08:15→21:09)
[2020-10-22] MEDS: ENOXAPARIN 40 MG/0.4 ML SYR SUBQ SCH (08:16)
[2020-10-22 12:00] VITALS: BP 119/73
[2020-10-22 16:00] VITALS: BP 131/66
[2020-10-22 20:00] VITALS: BP 126/70
[2020-10-22] MEDS ORDERED: LORazepam 0.5 MG TAB PO PRN (21:10)
[2020-10-22] MEDS ORDERED: ZOLPIDEM 5 MG TAB PO PRN (21:55)
[2020-10-23] VITALS (12 sets, daily range): BP systolic 76–144; BP diastolic 44–83
[2020-10-23] MEDS: BENZONATATE 100 MG CAPLF PO PRN ×3 (01:22→17:24)
[2020-10-23] MEDS: NACL 0.9% 1,000 ML IV SCH ×3 (02:39→22:20)
[2020-10-23] MEDS: guaiFENesin DM 200/20 MG-10 ML 10 ML UDC PO PRN ×3 (06:47→12:38)
[2020-10-23 07:29] LABS: BASOPHILS # (AUTO) 0.1 K/uL (0.00-0.22); BASOPHILS % (AUTO) 0.3 % (0.0-2.0); EOSINOPHILS # (AUTO) 0.1 K/uL (0-0.4); EOSINOPHILS % (AUTO) 0.3 % (0.0-4.0); HEMATOCRIT 36.6 % (36-52); LYMPHOCYTES # (AUTO) 0.5 K/uL (2.0-11.5); LYMPHOCYTES % (AUTO) 2.5 % (20.5-51.1); MAGNESIUM 2.5 mg/dL (1.8-2.4); MEAN CORPUSCULAR HEMOGLOBIN 31 pg (27-31); MEAN CORPUSCULAR HGB CONC 33 g/dL (33-37); MEAN CORPUSCULAR VOLUME 93.8 fL (80-94); MONOCYTES # (AUTO) 0.5 K/uL (0.8-1.0); MONOCYTES % (AUTO) 2.6 % (1.7-9.3); NEUTROPHILS # (AUTO) 18.8 K/uL (1.8-7.7); NEUTROPHILS % (AUTO) 94.3 % (42.2-75.2); PHOSPHORUS 2.5 mg/dL (2.5-4.9); PLATELET COUNT (AUTO) 171 K/uL (140-450); RED CELL DISTRIBUTION WIDTH 13.2 % (11.6-13.7); WHITE BLOOD COUNT (AUTO) 19.9 K/uL (4.8-10.8)
[2020-10-23 07:33] LABS: ANION GAP 14.4 (8-16); CARBON DIOXIDE 23.1 mmol/L (21-32); CREATININE 1.4 mg/dL (0.6-1.3); POTASSIUM 4.5 mmol/L (3.5-5.1)
[2020-10-23] MEDS: METOPROLOL 25 MG TAB PO SCH ×2 (09:20→21:00)
[2020-10-23] MEDS: ASCORBIC ACID 500 MG TAB PO SCH (09:20)
[2020-10-23] MEDS: ENOXAPARIN 40 MG/0.4 ML SYR SUBQ SCH (09:20)
[2020-10-23] MEDS: ZINC SULF 220 MG CAP PO SCH (09:21)
[2020-10-23] MEDS: lisinopriL 20 MG TAB PO SCH (09:21)
[2020-10-23] MEDS: PANTOPRAZOLE 40 MG TABEC PO SCH (09:21)
[2020-10-23] MEDS: MORPHINE SULFATE 4 MG/ML SYR IVP PRN (12:41)
[2020-10-23] MEDS ORDERED: fentaNYL citrate 0.05 MG/ML VIAL ONE (18:17)
[2020-10-23] MEDS ORDERED: NOREPINEPHRINE 4 MG/4 ML VIAL IV ONE (20:24)
[2020-10-23] MEDS: MIDAZOLAM MDV 50 MG in NACL 0.9% 40 ML IV PRN ×3 (20:30→21:30)
[2020-10-23] MEDS: fentaNYL citrate 1 MG in NACL 0.9% 80 ML IV PRN ×2 (21:10→21:40)
[2020-10-23] MEDS: PROPOFOL 1000 MG/100 ML PREMIX 100 ML IV PRN ×3 (21:10→21:30)
[2020-10-23] MEDS: ACETAMINOPHEN 325 MG TAB PO PRN (21:45)
[2020-10-23] MEDS ORDERED: PIPERACILLIN/TAZOBACTAM 3.375 GM VIAL IV ONE (23:19)
[2020-10-23] MEDS: PIPERACILLIN/TAZOBACTAM 3.375 GM in DEXTROSE 5% 50 ML IV SCH (23:53)
[2020-10-24] VITALS (27 sets, daily range): BP systolic 85–118; BP diastolic 38–73
[2020-10-24] MEDS: PROPOFOL 1000 MG/100 ML PREMIX 100 ML IV PRN ×3 (00:02→18:37)
[2020-10-24] MEDS: fentaNYL citrate 1 MG in NACL 0.9% 80 ML IV PRN (00:25)
[2020-10-24] MEDS: MIDAZOLAM MDV 50 MG in NACL 0.9% 40 ML IV PRN (01:00)
[2020-10-24] MEDS ORDERED: PIPERACILLIN/TAZOBACTAM 3.375 GM VIAL IV ONE (03:46)
[2020-10-24] MEDS ORDERED: ROCURONIUM 50 MG/5 ML VIAL IV PRN (04:00)
[2020-10-24] MEDS: NOREPINEPHRINE 4 MG in DEXTROSE 5% 250 ML IV PRN ×5 (05:00→22:40)
[2020-10-24] MEDS: PIPERACILLIN/TAZOBACTAM 3.375 GM in DEXTROSE 5% 50 ML IV SCH ×4 (06:07→23:17)
[2020-10-24] MEDS: NACL 0.9% 1,000 ML IV SCH ×2 (08:20→18:23)
[2020-10-24] MEDS ORDERED: MIDAZOLAM MDV 100 MG in NACL 0.9% 80 ML IV PRN (08:45)
[2020-10-24] MEDS: ENOXAPARIN 40 MG/0.4 ML SYR SUBQ SCH (09:00)
[2020-10-24] MEDS: lisinopriL 20 MG TAB PO SCH (09:00)
[2020-10-24] MEDS: METOPROLOL 25 MG TAB PO SCH ×2 (09:00→20:26)
[2020-10-24] MEDS: fentaNYL citrate 2.5 MG in NACL 0.9% 200 ML IV PRN (09:38)
[2020-10-24] MEDS: ASCORBIC ACID 500 MG TAB PO SCH (10:13)
[2020-10-24] MEDS: ZINC SULF 220 MG CAP PO SCH (10:13)
[2020-10-24] MEDS: PANTOPRAZOLE 40 MG TABEC PO SCH (10:13)
[2020-10-24 12:07] LABS: BASOPHILS # (AUTO) 0.3 K/uL (0.00-0.22); BASOPHILS % (AUTO) 1.2 % (0.0-2.0); EOSINOPHILS # (AUTO) 0.2 K/uL (0-0.4); EOSINOPHILS % (AUTO) 0.7 % (0.0-4.0); HEMATOCRIT 37.4 % (36-52); HEMOGLOBIN 12.1 g/dL (12.0-18.0); LYMPHOCYTES # (AUTO) 0.6 K/uL (2.0-11.5); LYMPHOCYTES % (AUTO) 2.7 % (20.5-51.1); MEAN CORPUSCULAR HEMOGLOBIN 31 pg (27-31); MEAN CORPUSCULAR HGB CONC 32 g/dL (33-37); MEAN CORPUSCULAR VOLUME 95.6 fL (80-94); MONOCYTES # (AUTO) 0.6 K/uL (0.8-1.0); MONOCYTES % (AUTO) 2.5 % (1.7-9.3); NEUTROPHILS # (AUTO) 22.4 K/uL (1.8-7.7); NEUTROPHILS % (AUTO) 92.9 % (42.2-75.2); PLATELET COUNT (AUTO) 190 K/uL (140-450); RED BLOOD CELL COUNT(AUTO) 3.92 MIL/uL (4.20-6.10); RED CELL DISTRIBUTION WIDTH 13.9 % (11.6-13.7); WHITE BLOOD COUNT (AUTO) 24.1 K/uL (4.8-10.8)
[2020-10-24 12:25] LABS: ALBUMIN 1.6 g/dL (3.4-5.0); ANION GAP 14.9 (8-16); CARBON DIOXIDE 26.2 mmol/L (21-32); CREATININE 3.6 mg/dL (0.6-1.3); POTASSIUM 5.1 mmol/L (3.5-5.1); TOTAL BILIRUBIN 1.4 mg/dL (0.0-1.0)
[2020-10-24] MEDS: ACETAMINOPHEN 325 MG TAB PO PRN ×2 (13:14→20:11)
[2020-10-24] MEDS ORDERED: CRUSHER, PILL MC ONE (13:19)
[2020-10-25] VITALS (31 sets, daily range): BP systolic 72–127; BP diastolic 29–99
[2020-10-25] MEDS: PROPOFOL 1000 MG/100 ML PREMIX 100 ML IV PRN ×3 (02:21→18:24)
[2020-10-25] MEDS ORDERED: NOREPINEPHRINE 4 MG/4 ML VIAL IV ONE ×2 (02:54→05:47)
[2020-10-25] MEDS: NACL 0.9% 1,000 ML IV SCH (04:41)
[2020-10-25] MEDS: PIPERACILLIN/TAZOBACTAM 3.375 GM in DEXTROSE 5% 50 ML IV SCH ×4 (05:00→23:03)
[2020-10-25 05:57] LABS: ANION GAP 18.7 (8-16); CARBON DIOXIDE 22.4 mmol/L (21-32)
[2020-10-25] MEDS: NOREPINEPHRINE 4 MG in DEXTROSE 5% 250 ML IV PRN ×3 (05:57→14:13)
[2020-10-25 06:23] LABS: CREATININE 5.6 mg/dL (0.6-1.3); POTASSIUM 6.1 mmol/L (3.5-5.1)
[2020-10-25 06:36] LABS: BASOPHILS % (AUTO) 0.2 % (0.0-2.0); EOSINOPHILS # (AUTO) 0.1 K/uL (0-0.4); EOSINOPHILS % (AUTO) 0.3 % (0.0-4.0); HEMATOCRIT 38.1 % (36-52); HEMOGLOBIN 12.1 g/dL (12.0-18.0); LYMPHOCYTES # (AUTO) 0.5 K/uL (2.0-11.5); LYMPHOCYTES % (AUTO) 2.1 % (20.5-51.1); MEAN CORPUSCULAR HEMOGLOBIN 31 pg (27-31); MEAN CORPUSCULAR HGB CONC 32 g/dL (33-37); MEAN CORPUSCULAR VOLUME 96.5 fL (80-94); MONOCYTES # (AUTO) 0.7 K/uL (0.8-1.0); MONOCYTES % (AUTO) 3.1 % (1.7-9.3); NEUTROPHILS # (AUTO) 20.9 K/uL (1.8-7.7); NEUTROPHILS % (AUTO) 94.3 % (42.2-75.2); PLATELET COUNT (AUTO) 174 K/uL (140-450); RED BLOOD CELL COUNT(AUTO) 3.95 MIL/uL (4.20-6.10); WHITE BLOOD COUNT (AUTO) 22.1 K/uL (4.8-10.8)
[2020-10-25] MEDS: METOPROLOL 25 MG TAB PO SCH ×2 (09:00→20:16)
[2020-10-25] MEDS: lisinopriL 20 MG TAB PO SCH (09:00)
[2020-10-25] MEDS ORDERED: SODIUM ZIRCONIUM CYCLOSILICATE 10 GM POWD.PACK PO SCH (09:15)
[2020-10-25] MEDS: PANTOPRAZOLE 40 MG INJ VIAL IVP SCH (09:23)
[2020-10-25] MEDS: ASCORBIC ACID 500 MG TAB PO SCH (09:24)
[2020-10-25] MEDS: ZINC SULF 220 MG CAP PO SCH (09:25)
[2020-10-25] MEDS: ENOXAPARIN 40 MG/0.4 ML SYR SUBQ SCH (09:35)
[2020-10-25] MEDS: fentaNYL citrate 2.5 MG in NACL 0.9% 200 ML IV PRN (12:10)
[2020-10-25] MEDS ORDERED: ALBUMIN HUMAN 25% 200 ML IV STA (15:22)
[2020-10-25] MEDS: NOREPINEPHRINE 16 MG in DEXTROSE 5% 250 ML IV PRN (15:56)
[2020-10-26] VITALS (32 sets, daily range): BP systolic 88–136; BP diastolic 41–84
[2020-10-26] MEDS: ACETAMINOPHEN 325 MG TAB PO PRN (01:25)
[2020-10-26] MEDS: NOREPINEPHRINE 16 MG in DEXTROSE 5% 250 ML IV PRN ×3 (01:48→18:57)
[2020-10-26] MEDS: PROPOFOL 1000 MG/100 ML PREMIX 100 ML IV PRN ×3 (02:40→18:25)
[2020-10-26] MEDS: PIPERACILLIN/TAZOBACTAM 3.375 GM in DEXTROSE 5% 50 ML IV SCH ×4 (05:28→23:34)
[2020-10-26 06:15] LABS: BASOPHILS % (AUTO) 0.1 % (0.0-2.0); EOSINOPHILS # (AUTO) 0.3 K/uL (0-0.4); EOSINOPHILS % (AUTO) 1.4 % (0.0-4.0); HEMATOCRIT 32.9 % (36-52); HEMOGLOBIN 10.6 g/dL (12.0-18.0); LYMPHOCYTES # (AUTO) 0.7 K/uL (2.0-11.5); LYMPHOCYTES % (AUTO) 3.3 % (20.5-51.1); MEAN CORPUSCULAR HEMOGLOBIN 31 pg (27-31); MEAN CORPUSCULAR HGB CONC 32 g/dL (33-37); MEAN CORPUSCULAR VOLUME 94.6 fL (80-94); MONOCYTES # (AUTO) 0.6 K/uL (0.8-1.0); MONOCYTES % (AUTO) 2.8 % (1.7-9.3); NEUTROPHILS # (AUTO) 18.5 K/uL (1.8-7.7); NEUTROPHILS % (AUTO) 92.4 % (42.2-75.2); PLATELET COUNT (AUTO) 172 K/uL (140-450); RED BLOOD CELL COUNT(AUTO) 3.48 MIL/uL (4.20-6.10); RED CELL DISTRIBUTION WIDTH 13.7 % (11.6-13.7)
[2020-10-26 06:23] LABS: ANION GAP 19.7 (8-16); CARBON DIOXIDE 22.3 mmol/L (21-32)
[2020-10-26 06:30] LABS: CREATININE 6.5 mg/dL (0.6-1.3); MAGNESIUM 2.3 mg/dL (1.8-2.4); PHOSPHORUS 7.4 mg/dL (2.5-4.9)
[2020-10-26] MEDS: ASCORBIC ACID 500 MG TAB PO SCH (09:00)
[2020-10-26] MEDS: METOPROLOL 25 MG TAB PO SCH ×2 (09:00→21:00)
[2020-10-26] MEDS: lisinopriL 20 MG TAB PO SCH (09:00)
[2020-10-26] MEDS: ZINC SULF 220 MG CAP PO SCH (09:00)
[2020-10-26] MEDS: PANTOPRAZOLE 40 MG INJ VIAL IVP SCH (09:56)
[2020-10-26] MEDS: ENOXAPARIN 40 MG/0.4 ML SYR SUBQ SCH (09:58)
[2020-10-26] MEDS ORDERED: VANCOMYCIN PER PHARMACY MC PRN (13:00)
[2020-10-26] MEDS ORDERED: VANCOMYCIN 750 MG in DEXTROSE 5% 250 ML IV SCH (14:00)
[2020-10-26] MEDS: VASOPRESSIN 20 UNITS in NACL 0.9% 250 ML IV PRN (16:33)
[2020-10-26] MEDS: fentaNYL citrate 2.5 MG in NACL 0.9% 200 ML IV PRN (18:06)
[2020-10-27] VITALS (39 sets, daily range): BP systolic 97–164; BP diastolic 6–87
[2020-10-27] MEDS ORDERED: VASOPRESSIN 20 UNITS/ML VIAL ONE (03:16)
[2020-10-27] MEDS: VASOPRESSIN 20 UNITS in NACL 0.9% 250 ML IV PRN ×2 (03:26→15:09)
[2020-10-27 06:13] LABS: BASOPHILS % (AUTO) 0.1 % (0.0-2.0); EOSINOPHILS # (AUTO) 0.2 K/uL (0-0.4); EOSINOPHILS % (AUTO) 0.9 % (0.0-4.0); HEMOGLOBIN 10.7 g/dL (12.0-18.0); LYMPHOCYTES # (AUTO) 0.7 K/uL (2.0-11.5); LYMPHOCYTES % (AUTO) 3.5 % (20.5-51.1); MEAN CORPUSCULAR HEMOGLOBIN 31 pg (27-31); MEAN CORPUSCULAR HGB CONC 33 g/dL (33-37); MEAN CORPUSCULAR VOLUME 94.1 fL (80-94); MONOCYTES # (AUTO) 0.7 K/uL (0.8-1.0); MONOCYTES % (AUTO) 3.5 % (1.7-9.3); NEUTROPHILS # (AUTO) 18.6 K/uL (1.8-7.7); PLATELET COUNT (AUTO) 173 K/uL (140-450); RED BLOOD CELL COUNT(AUTO) 3.51 MIL/uL (4.20-6.10); RED CELL DISTRIBUTION WIDTH 14.1 % (11.6-13.7); WHITE BLOOD COUNT (AUTO) 20.2 K/uL (4.8-10.8)
[2020-10-27 06:17] LABS: MAGNESIUM 2.3 mg/dL (1.8-2.4); PHOSPHORUS 8.6 mg/dL (2.5-4.9)
[2020-10-27] MEDS: PIPERACILLIN/TAZOBACTAM 3.375 GM in DEXTROSE 5% 50 ML IV SCH ×4 (06:36→23:29)
[2020-10-27 07:09] LABS: ANION GAP 19.9 (8-16); CARBON DIOXIDE 21.6 mmol/L (21-32); POTASSIUM 5.5 mmol/L (3.5-5.1)
[2020-10-27 07:11] LABS: CREATININE 7.2 mg/dL (0.6-1.3)
[2020-10-27] MEDS: lisinopriL 20 MG TAB PO SCH (09:00)
[2020-10-27] MEDS: METOPROLOL 25 MG TAB PO SCH ×2 (09:00→20:53)
[2020-10-27] MEDS: ENOXAPARIN 40 MG/0.4 ML SYR SUBQ SCH (09:03)
[2020-10-27] MEDS: PANTOPRAZOLE 40 MG INJ VIAL IVP SCH (09:03)
[2020-10-27] MEDS: ZINC SULF 220 MG CAP PO SCH (09:04)
[2020-10-27] MEDS: ASCORBIC ACID 500 MG TAB PO SCH (09:04)
[2020-10-27] MEDS: NOREPINEPHRINE 16 MG in DEXTROSE 5% 250 ML IV PRN ×2 (09:09→21:26)
[2020-10-27] MEDS: PROPOFOL 1000 MG/100 ML PREMIX 100 ML IV PRN ×3 (15:53→23:39)
[2020-10-27] MEDS: fentaNYL citrate 2.5 MG in NACL 0.9% 200 ML IV PRN (21:30)
[2020-10-28] VITALS (41 sets, daily range): BP systolic 104–156; BP diastolic 53–99
[2020-10-28] MEDS: PIPERACILLIN/TAZOBACTAM 3.375 GM in DEXTROSE 5% 50 ML IV SCH ×2 (05:20→12:00)
[2020-10-28] MEDS: PROPOFOL 1000 MG/100 ML PREMIX 100 ML IV PRN ×3 (08:07→21:52)
[2020-10-28] MEDS: VASOPRESSIN 20 UNITS in NACL 0.9% 250 ML IV PRN (08:17)
[2020-10-28] MEDS: PANTOPRAZOLE 40 MG INJ VIAL IVP SCH (08:26)
[2020-10-28] MEDS: DEXAMETHASONE 4 MG/ML VIAL IVP SCH (08:28)
[2020-10-28] MEDS: ASCORBIC ACID 500 MG TAB PO SCH (08:29)
[2020-10-28] MEDS: METOPROLOL 25 MG TAB PO SCH ×2 (08:29→21:00)
[2020-10-28] MEDS: ZINC SULF 220 MG CAP PO SCH (08:29)
[2020-10-28] MEDS: lisinopriL 20 MG TAB PO SCH (08:29)
[2020-10-28 09:47] LABS: BASOPHILS # (AUTO) 0.1 K/uL (0.00-0.22); BASOPHILS % (AUTO) 0.5 % (0.0-2.0); EOSINOPHILS # (AUTO) 0.1 K/uL (0-0.4); EOSINOPHILS % (AUTO) 0.6 % (0.0-4.0); HEMATOCRIT 31.7 % (36-52); HEMOGLOBIN 10.3 g/dL (12.0-18.0); LYMPHOCYTES # (AUTO) 0.5 K/uL (2.0-11.5); MEAN CORPUSCULAR HEMOGLOBIN 30 pg (27-31); MEAN CORPUSCULAR HGB CONC 33 g/dL (33-37); MEAN CORPUSCULAR VOLUME 93.1 fL (80-94); MONOCYTES # (AUTO) 0.6 K/uL (0.8-1.0); MONOCYTES % (AUTO) 3.5 % (1.7-9.3); NEUTROPHILS # (AUTO) 15.6 K/uL (1.8-7.7); NEUTROPHILS % (AUTO) 92.4 % (42.2-75.2); PLATELET COUNT (AUTO) 165 K/uL (140-450); RED BLOOD CELL COUNT(AUTO) 3.41 MIL/uL (4.20-6.10); RED CELL DISTRIBUTION WIDTH 13.8 % (11.6-13.7); WHITE BLOOD COUNT (AUTO) 16.9 K/uL (4.8-10.8)
[2020-10-28 09:54] LABS: ANION GAP 23.2 (8-16); CARBON DIOXIDE 20.3 mmol/L (21-32)
[2020-10-28] MEDS ORDERED: VANCOMYCIN 1,000 MG in DEXTROSE 5% 250 ML IV SCH (10:00)
[2020-10-28 10:01] LABS: CREATININE 8.2 mg/dL (0.6-1.3); POTASSIUM 5.5 mmol/L (3.5-5.1)
[2020-10-28] MEDS: ENOXAPARIN 40 MG/0.4 ML SYR SUBQ SCH (10:40)
[2020-10-28] MEDS: NOREPINEPHRINE 16 MG in DEXTROSE 5% 250 ML IV PRN (11:39)
[2020-10-28] MEDS: fentaNYL citrate 2.5 MG in NACL 0.9% 200 ML IV PRN (22:45)
[2020-10-28] MEDS ORDERED: VASOPRESSIN 20 UNITS/ML VIAL ONE (23:10)
[2020-10-29] VITALS (34 sets, daily range): BP systolic 90–127; BP diastolic 48–99
[2020-10-29] MEDS: VASOPRESSIN 20 UNITS in NACL 0.9% 250 ML IV PRN ×2 (00:23→15:52)
[2020-10-29] MEDS: PROPOFOL 1000 MG/100 ML PREMIX 100 ML IV PRN ×3 (04:23→18:48)
[2020-10-29] MEDS: PIPERACILLIN/TAZOBACTAM 3.375 GM in DEXTROSE 5% 50 ML IV SCH ×6 (06:36→23:43)
[2020-10-29 06:40] LABS: BASOPHILS # (AUTO) 0.1 K/uL (0.00-0.22); BASOPHILS % (AUTO) 1.1 % (0.0-2.0); EOSINOPHILS % (AUTO) 0.2 % (0.0-4.0); HEMATOCRIT 29.5 % (36-52); HEMOGLOBIN 9.6 g/dL (12.0-18.0); LYMPHOCYTES # (AUTO) 0.7 K/uL (2.0-11.5); LYMPHOCYTES % (AUTO) 5.4 % (20.5-51.1); MEAN CORPUSCULAR HEMOGLOBIN 31 pg (27-31); MEAN CORPUSCULAR HGB CONC 32 g/dL (33-37); MEAN CORPUSCULAR VOLUME 94.6 fL (80-94); MONOCYTES # (AUTO) 0.6 K/uL (0.8-1.0); MONOCYTES % (AUTO) 4.9 % (1.7-9.3); NEUTROPHILS # (AUTO) 11.7 K/uL (1.8-7.7); NEUTROPHILS % (AUTO) 88.4 % (42.2-75.2); PLATELET COUNT (AUTO) 167 K/uL (140-450); RED BLOOD CELL COUNT(AUTO) 3.12 MIL/uL (4.20-6.10); RED CELL DISTRIBUTION WIDTH 13.9 % (11.6-13.7); WHITE BLOOD COUNT (AUTO) 13.2 K/uL (4.8-10.8)
[2020-10-29 06:46] LABS: ANION GAP 24.3 (8-16); CARBON DIOXIDE 21.5 mmol/L (21-32); POTASSIUM 5.8 mmol/L (3.5-5.1)
[2020-10-29 06:50] LABS: CREATININE 7.6 mg/dL (0.6-1.3)
[2020-10-29] MEDS: PANTOPRAZOLE 40 MG INJ VIAL IVP SCH (08:36)
[2020-10-29] MEDS: DEXAMETHASONE 4 MG/ML VIAL IVP SCH (08:36)
[2020-10-29] MEDS: ASCORBIC ACID 500 MG TAB PO SCH (08:36)
[2020-10-29] MEDS: ENOXAPARIN 40 MG/0.4 ML SYR SUBQ SCH (08:37)
[2020-10-29] MEDS: ZINC SULF 220 MG CAP PO SCH (08:38)
[2020-10-29] MEDS: METOPROLOL 25 MG TAB PO SCH ×2 (09:00→20:19)
[2020-10-29] MEDS: lisinopriL 20 MG TAB PO SCH (09:00)
[2020-10-29] MEDS ORDERED: LOPERAMIDE 2 MG CAP PO PRN (22:55)
[2020-10-29] MEDS: fentaNYL citrate 2.5 MG in NACL 0.9% 200 ML IV PRN (23:56)
[2020-10-30] VITALS (34 sets, daily range): BP systolic 86–136; BP diastolic 40–72
[2020-10-30] MEDS: PROPOFOL 1000 MG/100 ML PREMIX 100 ML IV PRN ×3 (01:24→22:09)
[2020-10-30] MEDS ORDERED: VASOPRESSIN 20 UNITS/ML VIAL ONE ×2 (03:39→19:46)
[2020-10-30] MEDS: VASOPRESSIN 20 UNITS in NACL 0.9% 250 ML IV PRN ×2 (04:32→20:59)
[2020-10-30] MEDS: PIPERACILLIN/TAZOBACTAM 3.375 GM in DEXTROSE 5% 50 ML IV SCH ×4 (05:35→23:03)
[2020-10-30 06:06] LABS: BASOPHILS # (AUTO) 0.1 K/uL (0.00-0.22); BASOPHILS % (AUTO) 0.5 % (0.0-2.0); EOSINOPHILS # (AUTO) 0.1 K/uL (0-0.4); EOSINOPHILS % (AUTO) 0.5 % (0.0-4.0); HEMATOCRIT 31.9 % (36-52); HEMOGLOBIN 10.5 g/dL (12.0-18.0); LYMPHOCYTES # (AUTO) 0.3 K/uL (2.0-11.5); MEAN CORPUSCULAR HEMOGLOBIN 31 pg (27-31); MEAN CORPUSCULAR HGB CONC 33 g/dL (33-37); MONOCYTES # (AUTO) 0.6 K/uL (0.8-1.0); MONOCYTES % (AUTO) 5.4 % (1.7-9.3); PLATELET COUNT (AUTO) 163 K/uL (140-450); RED BLOOD CELL COUNT(AUTO) 3.43 MIL/uL (4.20-6.10); RED CELL DISTRIBUTION WIDTH 13.9 % (11.6-13.7)
[2020-10-30 06:27] LABS: ANION GAP 27.2 (8-16); CARBON DIOXIDE 17.3 mmol/L (21-32); POTASSIUM 5.5 mmol/L (3.5-5.1)
[2020-10-30 07:00] LABS: LYMPHOCYTES % (AUTO) 3.2 % (20.5-51.1); NEUTROPHILS % (AUTO) 90.4 % (42.2-75.2)
[2020-10-30] MEDS: DEXAMETHASONE 4 MG/ML VIAL IVP SCH (08:33)
[2020-10-30] MEDS: ENOXAPARIN 40 MG/0.4 ML SYR SUBQ SCH (08:33)
[2020-10-30] MEDS: ASCORBIC ACID 500 MG TAB PO SCH (08:33)
[2020-10-30] MEDS: PANTOPRAZOLE 40 MG INJ VIAL IVP SCH (08:33)
[2020-10-30] MEDS: ZINC SULF 220 MG CAP PO SCH (08:34)
[2020-10-30] MEDS: METOPROLOL 25 MG TAB PO SCH ×2 (08:59→20:03)
[2020-10-30] MEDS: lisinopriL 20 MG TAB PO SCH (08:59)
[2020-10-31] VITALS (50 sets, daily range): BP systolic 89–160; BP diastolic 45–73
[2020-10-31] MEDS: fentaNYL citrate 2.5 MG in NACL 0.9% 200 ML IV PRN (01:13)
[2020-10-31] MEDS: PROPOFOL 1000 MG/100 ML PREMIX 100 ML IV PRN ×3 (04:16→21:29)
[2020-10-31 04:52] LABS: BASOPHILS # (AUTO) 0.1 K/uL (0.00-0.22); BASOPHILS % (AUTO) 0.7 % (0.0-2.0); EOSINOPHILS # (AUTO) 0.2 K/uL (0-0.4); EOSINOPHILS % (AUTO) 1.3 % (0.0-4.0); HEMATOCRIT 25.5 % (36-52); LYMPHOCYTES # (AUTO) 0.6 K/uL (2.0-11.5); LYMPHOCYTES % (AUTO) 4.2 % (20.5-51.1); MEAN CORPUSCULAR HEMOGLOBIN 31 pg (27-31); MEAN CORPUSCULAR HGB CONC 33 g/dL (33-37); MEAN CORPUSCULAR VOLUME 92.2 fL (80-94); MONOCYTES # (AUTO) 0.7 K/uL (0.8-1.0); MONOCYTES % (AUTO) 5.2 % (1.7-9.3); NEUTROPHILS # (AUTO) 12.1 K/uL (1.8-7.7); NEUTROPHILS % (AUTO) 88.6 % (42.2-75.2); PLATELET COUNT (AUTO) 192 K/uL (140-450); RED BLOOD CELL COUNT(AUTO) 2.76 MIL/uL (4.20-6.10); RED CELL DISTRIBUTION WIDTH 13.7 % (11.6-13.7); WHITE BLOOD COUNT (AUTO) 13.7 K/uL (4.8-10.8)
[2020-10-31 05:26] LABS: ANION GAP 22.3 (8-16); CARBON DIOXIDE 23.1 mmol/L (21-32); POTASSIUM 4.4 mmol/L (3.5-5.1)
[2020-10-31] MEDS: PIPERACILLIN/TAZOBACTAM 3.375 GM in DEXTROSE 5% 50 ML IV SCH ×3 (05:30→18:44)
[2020-10-31 06:04] LABS: CREATININE 8.2 mg/dL (0.6-1.3)
[2020-10-31 06:11] LABS: HEMOGLOBIN 8.5 g/dL (12.0-18.0)
[2020-10-31] MEDS: ENOXAPARIN 40 MG/0.4 ML SYR SUBQ SCH (07:59)
[2020-10-31] MEDS: DEXAMETHASONE 4 MG/ML VIAL IVP SCH (08:00)
[2020-10-31] MEDS: PANTOPRAZOLE 40 MG INJ VIAL IVP SCH (08:00)
[2020-10-31] MEDS: ASCORBIC ACID 500 MG TAB PO SCH (08:00)
[2020-10-31] MEDS: ZINC SULF 220 MG CAP PO SCH (08:00)
[2020-10-31] MEDS: METOPROLOL 25 MG TAB PO SCH ×2 (09:00→21:00)
[2020-10-31] MEDS: lisinopriL 20 MG TAB PO SCH (09:00)
[2020-10-31] MEDS: VASOPRESSIN 20 UNITS in NACL 0.9% 250 ML IV PRN (11:30)
[2020-10-31] MEDS ORDERED: VANCOMYCIN 1,000 MG in DEXTROSE 5% 250 ML IV SCH (12:00)
[2020-11-01] VITALS (92 sets, daily range): BP systolic 73–145; BP diastolic 37–73
[2020-11-01] MEDS: PIPERACILLIN/TAZOBACTAM 3.375 GM in DEXTROSE 5% 50 ML IV SCH ×5 (00:30→23:15)
[2020-11-01 06:18] LABS: MAGNESIUM 2.9 mg/dL (1.8-2.4)
[2020-11-01 06:19] LABS: CARBON DIOXIDE 19.2 mmol/L (21-32); POTASSIUM 5.2 mmol/L (3.5-5.1)
[2020-11-01 06:20] LABS: BASOPHILS # (AUTO) 0.1 K/uL (0.00-0.22); BASOPHILS % (AUTO) 0.4 % (0.0-2.0); EOSINOPHILS # (AUTO) 0.1 K/uL (0-0.4); EOSINOPHILS % (AUTO) 0.6 % (0.0-4.0); HEMOGLOBIN 8.4 g/dL (12.0-18.0); LYMPHOCYTES # (AUTO) 0.6 K/uL (2.0-11.5); LYMPHOCYTES % (AUTO) 3.2 % (20.5-51.1); MEAN CORPUSCULAR HEMOGLOBIN 30 pg (27-31); MEAN CORPUSCULAR HGB CONC 32 g/dL (33-37); MEAN CORPUSCULAR VOLUME 93.4 fL (80-94); MONOCYTES # (AUTO) 0.7 K/uL (0.8-1.0); MONOCYTES % (AUTO) 3.7 % (1.7-9.3); NEUTROPHILS # (AUTO) 17.9 K/uL (1.8-7.7); NEUTROPHILS % (AUTO) 92.1 % (42.2-75.2); PLATELET COUNT (AUTO) 253 K/uL (140-450); RED BLOOD CELL COUNT(AUTO) 2.78 MIL/uL (4.20-6.10); WHITE BLOOD COUNT (AUTO) 19.4 K/uL (4.8-10.8)
[2020-11-01 06:48] LABS: CREATININE 9.9 mg/dL (0.6-1.3)
[2020-11-01 07:01] LABS: PHOSPHORUS 11.7 mg/dL (2.5-4.9)
[2020-11-01] MEDS: METOPROLOL 25 MG TAB PO SCH ×2 (09:00→20:42)
[2020-11-01] MEDS: lisinopriL 20 MG TAB PO SCH (09:00)
[2020-11-01] MEDS: PANTOPRAZOLE 40 MG INJ VIAL IVP SCH (09:14)
[2020-11-01] MEDS: DEXAMETHASONE 4 MG/ML VIAL IVP SCH (09:15)
[2020-11-01] MEDS: ZINC SULF 220 MG CAP PO SCH (09:15)
[2020-11-01] MEDS: ASCORBIC ACID 500 MG TAB PO SCH (09:15)
[2020-11-01] MEDS: ENOXAPARIN 40 MG/0.4 ML SYR SUBQ SCH (09:16)
[2020-11-01] MEDS: PROPOFOL 1000 MG/100 ML PREMIX 100 ML IV PRN (11:08)
[2020-11-01] MEDS: fentaNYL citrate 2.5 MG in NACL 0.9% 200 ML IV PRN (15:50)
[2020-11-01] MEDS: VASOPRESSIN 20 UNITS in NACL 0.9% 250 ML IV PRN (16:09)
[2020-11-01] MEDS: NOREPINEPHRINE 16 MG in DEXTROSE 5% 250 ML IV PRN (18:16)
[2020-11-02] VITALS (69 sets, daily range): BP systolic 92–137; BP diastolic 38–73
[2020-11-02] MEDS: PIPERACILLIN/TAZOBACTAM 3.375 GM in DEXTROSE 5% 50 ML IV SCH ×3 (05:08→18:16)
[2020-11-02 06:10] LABS: HEMATOCRIT 23.9 % (36-52); HEMOGLOBIN 7.8 g/dL (12.0-18.0); MEAN CORPUSCULAR HEMOGLOBIN 30 pg (27-31); MEAN CORPUSCULAR HGB CONC 33 g/dL (33-37); MEAN CORPUSCULAR VOLUME 92.4 fL (80-94); PLATELET COUNT (AUTO) 261 K/uL (140-450); RED BLOOD CELL COUNT(AUTO) 2.59 MIL/uL (4.20-6.10); RED CELL DISTRIBUTION WIDTH 14.1 % (11.6-13.7); WHITE BLOOD COUNT (AUTO) 18.5 K/uL (4.8-10.8)
[2020-11-02 06:39] LABS: ALBUMIN 1.6 g/dL (3.4-5.0); ANION GAP 25.1 (8-16); CARBON DIOXIDE 21.6 mmol/L (21-32); MAGNESIUM 2.5 mg/dL (1.8-2.4); POTASSIUM 4.7 mmol/L (3.5-5.1)
[2020-11-02 07:14] LABS: CREATININE 8.5 mg/dL (0.6-1.3)
[2020-11-02 07:15] LABS: PHOSPHORUS 10.1 mg/dL (2.5-4.9)
[2020-11-02 08:02] LABS: LYMPHOCYTES % (MANUAL) 5 % (20-46); MONOCYTES % (MANUAL) 5 % (5-12)
[2020-11-02] MEDS: PANTOPRAZOLE 40 MG INJ VIAL IVP SCH (08:40)
[2020-11-02] MEDS: ENOXAPARIN 40 MG/0.4 ML SYR SUBQ SCH (08:41)
[2020-11-02] MEDS: ZINC SULF 220 MG CAP PO SCH (08:41)
[2020-11-02] MEDS: DEXAMETHASONE 4 MG/ML VIAL IVP SCH (08:41)
[2020-11-02] MEDS: ASCORBIC ACID 500 MG TAB PO SCH (08:41)
[2020-11-02] MEDS: METOPROLOL 25 MG TAB PO SCH ×2 (08:42→21:00)
[2020-11-02] MEDS: lisinopriL 20 MG TAB PO SCH (08:42)
[2020-11-02] MEDS: VASOPRESSIN 20 UNITS in NACL 0.9% 250 ML IV PRN (13:39)
[2020-11-02] MEDS: PROPOFOL 1000 MG/100 ML PREMIX 100 ML IV PRN (17:36)
[2020-11-03] VITALS (53 sets, daily range): BP systolic 82–155; BP diastolic 34–69
[2020-11-03] MEDS: PROPOFOL 1000 MG/100 ML PREMIX 100 ML IV PRN ×2 (06:00→17:29)
[2020-11-03 06:28] LABS: BASOPHILS # (AUTO) 0.1 K/uL (0.00-0.22); BASOPHILS % (AUTO) 0.3 % (0.0-2.0); EOSINOPHILS # (AUTO) 0.1 K/uL (0-0.4); EOSINOPHILS % (AUTO) 0.4 % (0.0-4.0); HEMATOCRIT 23.5 % (36-52); HEMOGLOBIN 7.5 g/dL (12.0-18.0); LYMPHOCYTES # (AUTO) 1.4 K/uL (2.0-11.5); LYMPHOCYTES % (AUTO) 6.3 % (20.5-51.1); MEAN CORPUSCULAR HEMOGLOBIN 30 pg (27-31); MEAN CORPUSCULAR HGB CONC 32 g/dL (33-37); MEAN CORPUSCULAR VOLUME 93.6 fL (80-94); MONOCYTES # (AUTO) 0.7 K/uL (0.8-1.0); MONOCYTES % (AUTO) 3.1 % (1.7-9.3); NEUTROPHILS # (AUTO) 19.5 K/uL (1.8-7.7); NEUTROPHILS % (AUTO) 89.9 % (42.2-75.2); PLATELET COUNT (AUTO) 329 K/uL (140-450); RED BLOOD CELL COUNT(AUTO) 2.51 MIL/uL (4.20-6.10); RED CELL DISTRIBUTION WIDTH 14.5 % (11.6-13.7); WHITE BLOOD COUNT (AUTO) 21.6 K/uL (4.8-10.8)
[2020-11-03 07:08] LABS: ALBUMIN 1.6 g/dL (3.4-5.0); ANION GAP 24.3 (8-16); CARBON DIOXIDE 22.4 mmol/L (21-32); MAGNESIUM 2.5 mg/dL (1.8-2.4); POTASSIUM 4.7 mmol/L (3.5-5.1); TOTAL BILIRUBIN 0.9 mg/dL (0.0-1.0)
[2020-11-03] MEDS: DEXAMETHASONE 4 MG/ML VIAL IVP SCH (08:31)
[2020-11-03] MEDS: METOPROLOL 25 MG TAB PO SCH ×2 (08:31→20:11)
[2020-11-03] MEDS: PANTOPRAZOLE 40 MG INJ VIAL IVP SCH (08:31)
[2020-11-03] MEDS: SEVELAMER CARBONATE 800 MG TAB PO SCH ×3 (08:31→17:27)
[2020-11-03] MEDS: ZINC SULF 220 MG CAP PO SCH (08:31)
[2020-11-03] MEDS: ASCORBIC ACID 500 MG TAB PO SCH (08:31)
[2020-11-03] MEDS: lisinopriL 20 MG TAB PO SCH (08:31)
[2020-11-03] MEDS: ENOXAPARIN 40 MG/0.4 ML SYR SUBQ SCH (08:32)
[2020-11-03 08:46] LABS: PHOSPHORUS 10.9 mg/dL (2.5-4.9)
[2020-11-03] MEDS ORDERED: SODIUM BICARBONATE 8.4% PFS 50 MEQ/50 ML SYR IVP SCH (09:10)
[2020-11-03] MEDS: ALUMINUM HYDROXIDE 64 MG/ML BOTTLE PO SCH ×3 (12:15→23:47)
[2020-11-03] MEDS: fentaNYL citrate 2.5 MG in NACL 0.9% 200 ML IV PRN (12:29)
[2020-11-03] MEDS: VASOPRESSIN 20 UNITS in NACL 0.9% 250 ML IV PRN (19:00)
[2020-11-03] MEDS ORDERED: VASOPRESSIN 20 UNITS/ML VIAL ONE (19:09)
[2020-11-03] MEDS: NOREPINEPHRINE 16 MG in DEXTROSE 5% 250 ML IV PRN (20:08)
[2020-11-04] VITALS (32 sets, daily range): BP systolic 87–153; BP diastolic 43–77
[2020-11-04] MEDS: PROPOFOL 1000 MG/100 ML PREMIX 100 ML IV PRN (04:34)
[2020-11-04] MEDS: ALUMINUM HYDROXIDE 64 MG/ML BOTTLE PO SCH ×4 (06:08→23:11)
[2020-11-04 06:15] LABS: BASOPHILS % (AUTO) 0.2 % (0.0-2.0); EOSINOPHILS # (AUTO) 0.2 K/uL (0-0.4); EOSINOPHILS % (AUTO) 0.7 % (0.0-4.0); HEMATOCRIT 21.9 % (36-52); LYMPHOCYTES # (AUTO) 0.9 K/uL (2.0-11.5); LYMPHOCYTES % (AUTO) 3.9 % (20.5-51.1); MEAN CORPUSCULAR HEMOGLOBIN 30 pg (27-31); MEAN CORPUSCULAR HGB CONC 33 g/dL (33-37); MEAN CORPUSCULAR VOLUME 92.8 fL (80-94); MONOCYTES # (AUTO) 0.9 K/uL (0.8-1.0); MONOCYTES % (AUTO) 3.9 % (1.7-9.3); NEUTROPHILS # (AUTO) 20.8 K/uL (1.8-7.7); NEUTROPHILS % (AUTO) 91.3 % (42.2-75.2); PLATELET COUNT (AUTO) 337 K/uL (140-450); RED BLOOD CELL COUNT(AUTO) 2.36 MIL/uL (4.20-6.10); RED CELL DISTRIBUTION WIDTH 14.4 % (11.6-13.7); WHITE BLOOD COUNT (AUTO) 22.8 K/uL (4.8-10.8)
[2020-11-04 06:27] LABS: ANION GAP 25.6 (8-16); CARBON DIOXIDE 21.6 mmol/L (21-32); POTASSIUM 5.2 mmol/L (3.5-5.1)
[2020-11-04 06:34] LABS: HEMOGLOBIN 7.1 g/dL (12.0-18.0)
[2020-11-04 07:22] LABS: MAGNESIUM 2.8 mg/dL (1.8-2.4)
[2020-11-04] MEDS: SEVELAMER CARBONATE 800 MG TAB PO SCH ×3 (08:00→17:07)
[2020-11-04 08:01] LABS: CREATININE 9.6 mg/dL (0.6-1.3)
[2020-11-04 08:47] LABS: PHOSPHORUS 13.5 mg/dL (2.5-4.9)
[2020-11-04] MEDS: ZINC SULF 220 MG CAP PO SCH (09:00)
[2020-11-04] MEDS: PANTOPRAZOLE 40 MG INJ VIAL IVP SCH (09:00)
[2020-11-04] MEDS: METOPROLOL 25 MG TAB PO SCH ×2 (09:00→20:12)
[2020-11-04] MEDS: DEXAMETHASONE 4 MG/ML VIAL IVP SCH (09:00)
[2020-11-04] MEDS: lisinopriL 20 MG TAB PO SCH (09:00)
[2020-11-04] MEDS: ASCORBIC ACID 500 MG TAB PO SCH (09:00)
[2020-11-04] MEDS ORDERED: SODIUM BICARBONATE 8.4% PFS 50 MEQ/50 ML SYR IVP SCH (09:30)
[2020-11-05] VITALS (80 sets, daily range): BP systolic 83–151; BP diastolic 43–97
[2020-11-05] MEDS: PROPOFOL 1000 MG/100 ML PREMIX 100 ML IV PRN ×4 (00:20→23:03)
[2020-11-05] MEDS: ALUMINUM HYDROXIDE 64 MG/ML BOTTLE PO SCH ×4 (05:17→23:02)
[2020-11-05] MEDS: NOREPINEPHRINE 16 MG in DEXTROSE 5% 250 ML IV PRN (05:42)
[2020-11-05 08:14] LABS: BASOPHILS # (AUTO) 0.1 K/uL (0.00-0.22); BASOPHILS % (AUTO) 0.6 % (0.0-2.0); EOSINOPHILS # (AUTO) 0.2 K/uL (0-0.4); EOSINOPHILS % (AUTO) 0.9 % (0.0-4.0); HEMATOCRIT 20.5 % (36-52); LYMPHOCYTES # (AUTO) 0.7 K/uL (2.0-11.5); LYMPHOCYTES % (AUTO) 3.6 % (20.5-51.1); MEAN CORPUSCULAR HEMOGLOBIN 30 pg (27-31); MEAN CORPUSCULAR HGB CONC 33 g/dL (33-37); MEAN CORPUSCULAR VOLUME 92.7 fL (80-94); MONOCYTES # (AUTO) 0.9 K/uL (0.8-1.0); MONOCYTES % (AUTO) 4.3 % (1.7-9.3); NEUTROPHILS # (AUTO) 18.6 K/uL (1.8-7.7); NEUTROPHILS % (AUTO) 90.6 % (42.2-75.2); PLATELET COUNT (AUTO) 322 K/uL (140-450); RED BLOOD CELL COUNT(AUTO) 2.21 MIL/uL (4.20-6.10); RED CELL DISTRIBUTION WIDTH 14.5 % (11.6-13.7); WHITE BLOOD COUNT (AUTO) 20.5 K/uL (4.8-10.8)
[2020-11-05 08:27] LABS: ANION GAP 21.6 (8-16); CARBON DIOXIDE 22.2 mmol/L (21-32); POTASSIUM 4.8 mmol/L (3.5-5.1)
[2020-11-05] MEDS: SEVELAMER CARBONATE 800 MG TAB PO SCH ×3 (08:31→17:10)
[2020-11-05] MEDS: ZINC SULF 220 MG CAP PO SCH (08:31)
[2020-11-05] MEDS: ASCORBIC ACID 500 MG TAB PO SCH (08:32)
[2020-11-05] MEDS: METOPROLOL 25 MG TAB PO SCH ×2 (08:32→21:00)
[2020-11-05] MEDS: PANTOPRAZOLE 40 MG INJ VIAL IVP SCH (08:32)
[2020-11-05] MEDS: DEXAMETHASONE 4 MG/ML VIAL IVP SCH (08:32)
[2020-11-05] MEDS: lisinopriL 20 MG TAB PO SCH (08:33)
[2020-11-05 08:35] LABS: CREATININE 8.4 mg/dL (0.6-1.3)
[2020-11-05 09:26] LABS: PHOSPHORUS 10.2 mg/dL (2.5-4.9)
[2020-11-05 09:27] LABS: MAGNESIUM 2.5 mg/dL (1.8-2.4)
[2020-11-05 09:31] LABS: HEMOGLOBIN 6.7 g/dL (12.0-18.0)
[2020-11-05] MEDS: fentaNYL citrate 2.5 MG in NACL 0.9% 200 ML IV PRN (16:47)
[2020-11-05 18:02] LABS: BASOPHILS # (AUTO) 0.3 K/uL (0.00-0.22); BASOPHILS % (AUTO) 1.5 % (0.0-2.0); EOSINOPHILS % (AUTO) 0.2 % (0.0-4.0); HEMATOCRIT 23.8 % (36-52); HEMOGLOBIN 8.1 g/dL (12.0-18.0); LYMPHOCYTES # (AUTO) 0.6 K/uL (2.0-11.5); LYMPHOCYTES % (AUTO) 2.7 % (20.5-51.1); MEAN CORPUSCULAR HEMOGLOBIN 32 pg (27-31); MEAN CORPUSCULAR HGB CONC 34 g/dL (33-37); MEAN CORPUSCULAR VOLUME 92.5 fL (80-94); MONOCYTES # (AUTO) 0.7 K/uL (0.8-1.0); MONOCYTES % (AUTO) 3.4 % (1.7-9.3); NEUTROPHILS # (AUTO) 20.4 K/uL (1.8-7.7); NEUTROPHILS % (AUTO) 92.2 % (42.2-75.2); PLATELET COUNT (AUTO) 307 K/uL (140-450); RED BLOOD CELL COUNT(AUTO) 2.57 MIL/uL (4.20-6.10); RED CELL DISTRIBUTION WIDTH 14.5 % (11.6-13.7); WHITE BLOOD COUNT (AUTO) 22.1 K/uL (4.8-10.8)
[2020-11-06] VITALS (102 sets, daily range): BP systolic 85–156; BP diastolic 44–83
[2020-11-06] MEDS: ALUMINUM HYDROXIDE 64 MG/ML BOTTLE PO SCH ×4 (05:20→23:40)
[2020-11-06 06:16] LABS: ANION GAP 22.1 (8-16); CARBON DIOXIDE 21.6 mmol/L (21-32); POTASSIUM 4.7 mmol/L (3.5-5.1)
[2020-11-06 06:35] LABS: BASOPHILS # (AUTO) 0.1 K/uL (0.00-0.22); BASOPHILS % (AUTO) 0.3 % (0.0-2.0); EOSINOPHILS # (AUTO) 0.1 K/uL (0-0.4); EOSINOPHILS % (AUTO) 0.3 % (0.0-4.0); HEMOGLOBIN 7.7 g/dL (12.0-18.0); LYMPHOCYTES # (AUTO) 1.7 K/uL (2.0-11.5); LYMPHOCYTES % (AUTO) 6.9 % (20.5-51.1); MEAN CORPUSCULAR HEMOGLOBIN 30 pg (27-31); MEAN CORPUSCULAR HGB CONC 32 g/dL (33-37); MEAN CORPUSCULAR VOLUME 93.6 fL (80-94); MONOCYTES # (AUTO) 0.9 K/uL (0.8-1.0); MONOCYTES % (AUTO) 3.5 % (1.7-9.3); NEUTROPHILS # (AUTO) 22.2 K/uL (1.8-7.7); PLATELET COUNT (AUTO) 330 K/uL (140-450); RED BLOOD CELL COUNT(AUTO) 2.56 MIL/uL (4.20-6.10); RED CELL DISTRIBUTION WIDTH 14.7 % (11.6-13.7); WHITE BLOOD COUNT (AUTO) 24.9 K/uL (4.8-10.8)
[2020-11-06 06:46] LABS: CREATININE 7.4 mg/dL (0.6-1.3)
[2020-11-06] MEDS: SEVELAMER CARBONATE 800 MG TAB PO SCH ×3 (07:58→17:40)
[2020-11-06] MEDS: NOREPINEPHRINE 16 MG in DEXTROSE 5% 250 ML IV PRN (07:59)
[2020-11-06 08:07] LABS: MAGNESIUM 2.6 mg/dL (1.8-2.4)
[2020-11-06] MEDS: PROPOFOL 1000 MG/100 ML PREMIX 100 ML IV PRN ×3 (08:11→21:47)
[2020-11-06] MEDS: PANTOPRAZOLE 40 MG INJ VIAL IVP SCH (08:39)
[2020-11-06] MEDS: DEXAMETHASONE 4 MG/ML VIAL IVP SCH (08:39)
[2020-11-06] MEDS: SODIUM BICARBONATE 650 MG TAB PO SCH ×2 (08:40→20:37)
[2020-11-06] MEDS: ZINC SULF 220 MG CAP PO SCH (08:40)
[2020-11-06] MEDS: METOPROLOL 25 MG TAB PO SCH ×2 (08:40→20:37)
[2020-11-06] MEDS: ASCORBIC ACID 500 MG TAB PO SCH (08:40)
[2020-11-06] MEDS: lisinopriL 20 MG TAB PO SCH (08:40)
[2020-11-06 09:20] LABS: PHOSPHORUS 9.4 mg/dL (2.5-4.9)
[2020-11-07] VITALS (65 sets, daily range): BP systolic 92–138; BP diastolic 47–69
[2020-11-07] MEDS: ALUMINUM HYDROXIDE 64 MG/ML BOTTLE PO SCH ×4 (05:18→23:21)
[2020-11-07] MEDS: NOREPINEPHRINE 16 MG in DEXTROSE 5% 250 ML IV PRN ×2 (05:22→20:10)
[2020-11-07] MEDS: PROPOFOL 1000 MG/100 ML PREMIX 100 ML IV PRN ×3 (05:24→23:23)
[2020-11-07 06:16] LABS: HEMOGLOBIN 7.4 g/dL (12.0-18.0); MEAN CORPUSCULAR HEMOGLOBIN 30 pg (27-31); MEAN CORPUSCULAR HGB CONC 32 g/dL (33-37); MEAN CORPUSCULAR VOLUME 93.1 fL (80-94); PLATELET COUNT (AUTO) 289 K/uL (140-450); RED BLOOD CELL COUNT(AUTO) 2.46 MIL/uL (4.20-6.10)
[2020-11-07 06:20] LABS: MAGNESIUM 2.8 mg/dL (1.8-2.4)
[2020-11-07 06:32] LABS: CARBON DIOXIDE 21.7 mmol/L (21-32); POTASSIUM 4.7 mmol/L (3.5-5.1)
[2020-11-07 07:00] LABS: PHOSPHORUS 10.8 mg/dL (2.5-4.9)
[2020-11-07 07:22] LABS: CREATININE 8.8 mg/dL (0.6-1.3)
[2020-11-07 08:08] LABS: LYMPHOCYTES % (MANUAL) 5 % (20-46); MONOCYTES % (MANUAL) 2 % (5-12); WHITE BLOOD COUNT (AUTO) 27.7 K/uL (4.8-10.8)
[2020-11-07] MEDS: SEVELAMER CARBONATE 800 MG TAB PO SCH ×3 (08:51→17:26)
[2020-11-07] MEDS: SODIUM BICARBONATE 650 MG TAB PO SCH ×2 (08:53→20:07)
[2020-11-07] MEDS: ASCORBIC ACID 500 MG TAB PO SCH (08:53)
[2020-11-07] MEDS: DEXAMETHASONE 4 MG/ML VIAL IVP SCH (08:53)
[2020-11-07] MEDS: PANTOPRAZOLE 40 MG INJ VIAL IVP SCH (08:53)
[2020-11-07] MEDS: ZINC SULF 220 MG CAP PO SCH (08:54)
[2020-11-07] MEDS: lisinopriL 20 MG TAB PO SCH (09:00)
[2020-11-07] MEDS: METOPROLOL 25 MG TAB PO SCH ×2 (09:00→20:08)
[2020-11-07] MEDS ORDERED: ALBUMIN HUMAN 25% 100 ML IV ONE (10:25)
[2020-11-07] MEDS: PIPERACILLIN/TAZOBACTAM 2.25 GM in DEXTROSE 5% 50 ML IV SCH ×2 (12:55→20:07)
[2020-11-07] MEDS ORDERED: PIPERACILLIN/TAZOBACTAM 3.375 GM in DEXTROSE 5% 50 ML IV SCH (13:00)
[2020-11-07] MEDS: fentaNYL citrate 1 MG in NACL 0.9% 80 ML IV PRN (16:18)
[2020-11-08] VITALS (102 sets, daily range): BP systolic 70–144; BP diastolic 20–72
[2020-11-08] MEDS: PIPERACILLIN/TAZOBACTAM 2.25 GM in DEXTROSE 5% 50 ML IV SCH ×3 (05:36→21:18)
[2020-11-08] MEDS: ALUMINUM HYDROXIDE 64 MG/ML BOTTLE PO SCH ×3 (05:37→18:11)
[2020-11-08 06:35] LABS: BASOPHILS # (AUTO) 0.3 K/uL (0.00-0.22); BASOPHILS % (AUTO) 1.2 % (0.0-2.0); EOSINOPHILS # (AUTO) 0.2 K/uL (0-0.4); EOSINOPHILS % (AUTO) 0.7 % (0.0-4.0); HEMATOCRIT 20.9 % (36-52); LYMPHOCYTES # (AUTO) 1.3 K/uL (2.0-11.5); LYMPHOCYTES % (AUTO) 5.6 % (20.5-51.1); MEAN CORPUSCULAR HEMOGLOBIN 30 pg (27-31); MEAN CORPUSCULAR HGB CONC 32 g/dL (33-37); MEAN CORPUSCULAR VOLUME 93.8 fL (80-94); MONOCYTES # (AUTO) 0.4 K/uL (0.8-1.0); MONOCYTES % (AUTO) 1.8 % (1.7-9.3); NEUTROPHILS # (AUTO) 20.7 K/uL (1.8-7.7); NEUTROPHILS % (AUTO) 90.7 % (42.2-75.2); PLATELET COUNT (AUTO) 239 K/uL (140-450); RED BLOOD CELL COUNT(AUTO) 2.23 MIL/uL (4.20-6.10); RED CELL DISTRIBUTION WIDTH 14.6 % (11.6-13.7); WHITE BLOOD COUNT (AUTO) 22.8 K/uL (4.8-10.8)
[2020-11-08 06:54] LABS: MAGNESIUM 2.5 mg/dL (1.8-2.4)
[2020-11-08 07:14] LABS: ANION GAP 18.7 (8-16); CARBON DIOXIDE 24.8 mmol/L (21-32); POTASSIUM 4.5 mmol/L (3.5-5.1)
[2020-11-08] MEDS: NOREPINEPHRINE 16 MG in DEXTROSE 5% 250 ML IV PRN ×2 (07:25→18:44)
[2020-11-08 07:32] LABS: CREATININE 7.5 mg/dL (0.6-1.3)
[2020-11-08 07:33] LABS: PHOSPHORUS 10.1 mg/dL (2.5-4.9)
[2020-11-08 07:58] LABS: HEMOGLOBIN 6.8 g/dL (12.0-18.0)
[2020-11-08] MEDS: MIDAZOLAM MDV 100 MG in NACL 0.9% 80 ML IV PRN (08:02)
[2020-11-08] MEDS: ZINC SULF 220 MG CAP PO SCH (08:39)
[2020-11-08] MEDS: PANTOPRAZOLE 40 MG INJ VIAL IVP SCH (08:39)
[2020-11-08] MEDS: ASCORBIC ACID 500 MG TAB PO SCH (08:40)
[2020-11-08] MEDS: SODIUM BICARBONATE 650 MG TAB PO SCH ×2 (08:40→21:19)
[2020-11-08] MEDS: CALCIUM CARBONATE 500 MG TAB GT SCH (08:40)
[2020-11-08] MEDS: DEXAMETHASONE 4 MG/ML VIAL IVP SCH (08:40)
[2020-11-08] MEDS: SEVELAMER CARBONATE 800 MG TAB PO SCH ×3 (08:40→17:00)
[2020-11-08] MEDS: lisinopriL 20 MG TAB PO SCH (08:41)
[2020-11-08] MEDS: METOPROLOL 25 MG TAB PO SCH ×2 (08:41→21:00)
[2020-11-08] MEDS: SODIUM BICARBONATE 8.4% 100 MEQ in DEXTROSE 5% 1,000 ML IV SCH (13:17)
[2020-11-08] MEDS: VASOPRESSIN 20 UNITS in NACL 0.9% 250 ML IV PRN (15:41)
[2020-11-08] MEDS ORDERED: ALTEPLASE 100 MG VIAL IV PRN (17:20)
[2020-11-08] MEDS ORDERED: ALTEPLASE 2 MG VIAL MC SCH (18:00)
[2020-11-08 20:58] LABS: BASOPHILS # (AUTO) 0.3 K/uL (0.00-0.22); BASOPHILS % (AUTO) 1.3 % (0.0-2.0); EOSINOPHILS % (AUTO) 0.2 % (0.0-4.0); HEMOGLOBIN 7.9 g/dL (12.0-18.0); LYMPHOCYTES # (AUTO) 0.5 K/uL (2.0-11.5); LYMPHOCYTES % (AUTO) 2.6 % (20.5-51.1); MEAN CORPUSCULAR HEMOGLOBIN 30 pg (27-31); MEAN CORPUSCULAR HGB CONC 33 g/dL (33-37); MEAN CORPUSCULAR VOLUME 92.2 fL (80-94); MONOCYTES # (AUTO) 0.5 K/uL (0.8-1.0); MONOCYTES % (AUTO) 2.4 % (1.7-9.3); NEUTROPHILS # (AUTO) 18.9 K/uL (1.8-7.7); NEUTROPHILS % (AUTO) 93.5 % (42.2-75.2); PLATELET COUNT (AUTO) 205 K/uL (140-450); RED CELL DISTRIBUTION WIDTH 14.3 % (11.6-13.7); WHITE BLOOD COUNT (AUTO) 20.2 K/uL (4.8-10.8)
[2020-11-09] VITALS (102 sets, daily range): BP systolic 76–157; BP diastolic 35–80
[2020-11-09] MEDS: ALUMINUM HYDROXIDE 64 MG/ML BOTTLE PO SCH ×4 (00:37→17:50)
[2020-11-09] MEDS: MIDAZOLAM MDV 100 MG in NACL 0.9% 80 ML IV PRN (02:42)
[2020-11-09] MEDS: PIPERACILLIN/TAZOBACTAM 2.25 GM in DEXTROSE 5% 50 ML IV SCH ×3 (05:20→20:49)
[2020-11-09 06:03] LABS: HEMATOCRIT 23.4 % (36-52); HEMOGLOBIN 7.8 g/dL (12.0-18.0); MEAN CORPUSCULAR HEMOGLOBIN 30 pg (27-31); MEAN CORPUSCULAR HGB CONC 33 g/dL (33-37); MEAN CORPUSCULAR VOLUME 91.2 fL (80-94); PLATELET COUNT (AUTO) 198 K/uL (140-450); RED BLOOD CELL COUNT(AUTO) 2.57 MIL/uL (4.20-6.10); RED CELL DISTRIBUTION WIDTH 14.1 % (11.6-13.7); WHITE BLOOD COUNT (AUTO) 21.1 K/uL (4.8-10.8)
[2020-11-09 06:11] LABS: CARBON DIOXIDE 25.6 mmol/L (21-32); POTASSIUM 3.6 mmol/L (3.5-5.1)
[2020-11-09 06:20] LABS: CREATININE 5.5 mg/dL (0.6-1.3)
[2020-11-09 06:42] LABS: MAGNESIUM 2.1 mg/dL (1.8-2.4); PHOSPHORUS 5.8 mg/dL (2.5-4.9)
[2020-11-09 08:20] LABS: EOSINOPHILS % (MANUAL) 3 % (0-4); LYMPHOCYTES % (MANUAL) 3 % (20-46); MONOCYTES % (MANUAL) 3 % (5-12)
[2020-11-09] MEDS: ASCORBIC ACID 500 MG TAB PO SCH (08:24)
[2020-11-09] MEDS: DEXAMETHASONE 4 MG/ML VIAL IVP SCH (08:24)
[2020-11-09] MEDS: PANTOPRAZOLE 40 MG INJ VIAL IVP SCH (08:24)
[2020-11-09] MEDS: ZINC SULF 220 MG CAP PO SCH (08:24)
[2020-11-09] MEDS: SEVELAMER CARBONATE 800 MG TAB PO SCH ×3 (08:24→17:50)
[2020-11-09] MEDS: CALCIUM CARBONATE 500 MG TAB GT SCH (08:24)
[2020-11-09] MEDS: SODIUM BICARBONATE 650 MG TAB PO SCH ×2 (08:24→20:24)
[2020-11-09] MEDS: METOPROLOL 25 MG TAB PO SCH ×2 (08:25→20:23)
[2020-11-09] MEDS: lisinopriL 20 MG TAB PO SCH (08:25)
[2020-11-09] MEDS: NOREPINEPHRINE 16 MG in DEXTROSE 5% 250 ML IV PRN (09:32)
[2020-11-09] MEDS: fentaNYL citrate 1 MG in NACL 0.9% 80 ML IV PRN (09:34)
[2020-11-09] MEDS: SODIUM BICARBONATE 8.4% 100 MEQ in DEXTROSE 5% 1,000 ML IV SCH (11:41)
[2020-11-10] VITALS (93 sets, daily range): BP systolic 95–137; BP diastolic 45–99
[2020-11-10] MEDS ORDERED: NOREPINEPHRINE 4 MG/4 ML VIAL IV ONE (00:50)
[2020-11-10] MEDS: ALUMINUM HYDROXIDE 64 MG/ML BOTTLE PO SCH ×3 (01:09→12:04)
[2020-11-10] MEDS ORDERED: ATROPINE 1 MG/10 ML SYR IVP ONE (03:25)
[2020-11-10] MEDS: PIPERACILLIN/TAZOBACTAM 2.25 GM in DEXTROSE 5% 50 ML IV SCH ×3 (05:00→21:12)
[2020-11-10 05:46] LABS: BASOPHILS # (AUTO) 0.2 K/uL (0.00-0.22); BASOPHILS % (AUTO) 1.1 % (0.0-2.0); EOSINOPHILS # (AUTO) 0.1 K/uL (0-0.4); EOSINOPHILS % (AUTO) 0.6 % (0.0-4.0); HEMATOCRIT 24.8 % (36-52); HEMOGLOBIN 7.9 g/dL (12.0-18.0); LYMPHOCYTES # (AUTO) 0.4 K/uL (2.0-11.5); MEAN CORPUSCULAR HEMOGLOBIN 30 pg (27-31); MEAN CORPUSCULAR HGB CONC 32 g/dL (33-37); MEAN CORPUSCULAR VOLUME 93.2 fL (80-94); MONOCYTES # (AUTO) 0.6 K/uL (0.8-1.0); MONOCYTES % (AUTO) 2.8 % (1.7-9.3); NEUTROPHILS # (AUTO) 19.4 K/uL (1.8-7.7); NEUTROPHILS % (AUTO) 93.5 % (42.2-75.2); PLATELET COUNT (AUTO) 201 K/uL (140-450); RED BLOOD CELL COUNT(AUTO) 2.67 MIL/uL (4.20-6.10); RED CELL DISTRIBUTION WIDTH 15.1 % (11.6-13.7); WHITE BLOOD COUNT (AUTO) 20.8 K/uL (4.8-10.8)
[2020-11-10 06:15] LABS: ANION GAP 14.4 (8-16); CARBON DIOXIDE 26.3 mmol/L (21-32); POTASSIUM 3.7 mmol/L (3.5-5.1)
[2020-11-10 06:23] LABS: CREATININE 5.3 mg/dL (0.6-1.3)
[2020-11-10] MEDS: MIDAZOLAM MDV 100 MG in NACL 0.9% 80 ML IV PRN (06:23)
[2020-11-10 06:31] LABS: MAGNESIUM 2.2 mg/dL (1.8-2.4); PHOSPHORUS 6.6 mg/dL (2.5-4.9)
[2020-11-10] MEDS: CALCIUM CARBONATE 500 MG TAB GT SCH (08:24)
[2020-11-10] MEDS: SODIUM BICARBONATE 650 MG TAB PO SCH ×2 (08:24→21:14)
[2020-11-10] MEDS: SEVELAMER CARBONATE 800 MG TAB PO SCH ×3 (08:24→17:00)
[2020-11-10] MEDS: DEXAMETHASONE 4 MG/ML VIAL IVP SCH (08:25)
[2020-11-10] MEDS: ASCORBIC ACID 500 MG TAB PO SCH (08:25)
[2020-11-10] MEDS: PANTOPRAZOLE 40 MG INJ VIAL IVP SCH (08:25)
[2020-11-10] MEDS: lisinopriL 20 MG TAB PO SCH (08:25)
[2020-11-10] MEDS: METOPROLOL 25 MG TAB PO SCH ×2 (08:26→20:10)
[2020-11-10] MEDS: ZINC SULF 220 MG CAP PO SCH (08:41)
[2020-11-10] MEDS: SODIUM BICARBONATE 8.4% 100 MEQ in DEXTROSE 5% 1,000 ML IV SCH (08:45)
[2020-11-10] MEDS: fentaNYL citrate 1 MG in NACL 0.9% 80 ML IV PRN (13:23)
[2020-11-10] MEDS: NOREPINEPHRINE 16 MG in DEXTROSE 5% 250 ML IV PRN (16:38)
[2020-11-11] VITALS (35 sets, daily range): BP systolic 83–153; BP diastolic 41–82
[2020-11-11] MEDS: fentaNYL citrate 1 MG in NACL 0.9% 80 ML IV PRN ×2 (02:13→23:59)
[2020-11-11] MEDS: PIPERACILLIN/TAZOBACTAM 2.25 GM in DEXTROSE 5% 50 ML IV SCH ×3 (04:24→20:17)
[2020-11-11 06:01] LABS: MAGNESIUM 2.4 mg/dL (1.8-2.4); PHOSPHORUS 8.3 mg/dL (2.5-4.9)
[2020-11-11] MEDS: MIDAZOLAM MDV 100 MG in NACL 0.9% 80 ML IV PRN (06:13)
[2020-11-11 06:14] LABS: BASOPHILS % (AUTO) 0.1 % (0.0-2.0); EOSINOPHILS # (AUTO) 0.1 K/uL (0-0.4); EOSINOPHILS % (AUTO) 0.4 % (0.0-4.0); HEMATOCRIT 23.9 % (36-52); HEMOGLOBIN 7.8 g/dL (12.0-18.0); LYMPHOCYTES # (AUTO) 0.5 K/uL (2.0-11.5); LYMPHOCYTES % (AUTO) 2.4 % (20.5-51.1); MEAN CORPUSCULAR HEMOGLOBIN 30 pg (27-31); MEAN CORPUSCULAR HGB CONC 33 g/dL (33-37); MEAN CORPUSCULAR VOLUME 92.3 fL (80-94); MONOCYTES # (AUTO) 0.5 K/uL (0.8-1.0); MONOCYTES % (AUTO) 2.4 % (1.7-9.3); NEUTROPHILS # (AUTO) 18.4 K/uL (1.8-7.7); NEUTROPHILS % (AUTO) 94.7 % (42.2-75.2); PLATELET COUNT (AUTO) 187 K/uL (140-450); RED BLOOD CELL COUNT(AUTO) 2.58 MIL/uL (4.20-6.10); RED CELL DISTRIBUTION WIDTH 14.9 % (11.6-13.7); WHITE BLOOD COUNT (AUTO) 19.4 K/uL (4.8-10.8)
[2020-11-11] MEDS: NOREPINEPHRINE 16 MG in DEXTROSE 5% 250 ML IV PRN (06:20)
[2020-11-11] MEDS: SODIUM BICARBONATE 8.4% 100 MEQ in DEXTROSE 5% 1,000 ML IV SCH (06:26)
[2020-11-11 08:05] LABS: CREATININE 6.3 mg/dL (0.6-1.3)
[2020-11-11] MEDS: METOPROLOL 25 MG TAB PO SCH ×2 (09:00→20:18)
[2020-11-11] MEDS: lisinopriL 20 MG TAB PO SCH (09:00)
[2020-11-11] MEDS: CALCIUM CARBONATE 500 MG TAB GT SCH (09:06)
[2020-11-11] MEDS: DEXAMETHASONE 4 MG/ML VIAL IVP SCH (09:08)
[2020-11-11] MEDS: ZINC SULF 220 MG CAP PO SCH (09:09)
[2020-11-11] MEDS: PANTOPRAZOLE 40 MG INJ VIAL IVP SCH (09:09)
[2020-11-11] MEDS: SODIUM BICARBONATE 650 MG TAB PO SCH ×2 (09:10→20:18)
[2020-11-11] MEDS: ASCORBIC ACID 500 MG TAB PO SCH (09:10)
[2020-11-11] MEDS: SEVELAMER CARBONATE 800 MG TAB PO SCH ×3 (09:53→18:48)
[2020-11-11] MEDS ORDERED: ALBUMIN HUMAN 25% 100 ML IV ONE ×2 (14:25→14:26)
[2020-11-12] VITALS (33 sets, daily range): BP systolic 87–134; BP diastolic 45–68
[2020-11-12] MEDS: SODIUM BICARBONATE 8.4% 100 MEQ in DEXTROSE 5% 1,000 ML IV SCH ×2 (04:45→22:37)
[2020-11-12] MEDS: PIPERACILLIN/TAZOBACTAM 2.25 GM in DEXTROSE 5% 50 ML IV SCH ×3 (05:44→20:16)
[2020-11-12] MEDS: NOREPINEPHRINE 16 MG in DEXTROSE 5% 250 ML IV PRN ×2 (08:29→18:46)
[2020-11-12] MEDS: SEVELAMER CARBONATE 800 MG TAB PO SCH ×3 (08:31→17:24)
[2020-11-12] MEDS: METOPROLOL 25 MG TAB PO SCH ×2 (09:00→20:16)
[2020-11-12] MEDS: DEXAMETHASONE 4 MG/ML VIAL IVP SCH (09:15)
[2020-11-12] MEDS: CALCIUM CARBONATE 500 MG TAB GT SCH (09:15)
[2020-11-12] MEDS: SODIUM BICARBONATE 650 MG TAB PO SCH ×2 (09:17→21:38)
[2020-11-12] MEDS: ASCORBIC ACID 500 MG TAB PO SCH (09:17)
[2020-11-12] MEDS: ZINC SULF 220 MG CAP PO SCH (09:18)
[2020-11-12] MEDS: lisinopriL 20 MG TAB PO SCH (09:18)
[2020-11-12] MEDS: MIDAZOLAM MDV 100 MG in NACL 0.9% 80 ML IV PRN (09:43)
[2020-11-12] MEDS: PANTOPRAZOLE 40 MG INJ VIAL IVP SCH (09:45)
[2020-11-12] MEDS: fentaNYL citrate 1 MG in NACL 0.9% 80 ML IV PRN (18:19)
[2020-11-13] VITALS (33 sets, daily range): BP systolic 96–151; BP diastolic 45–73
[2020-11-13] MEDS: PIPERACILLIN/TAZOBACTAM 2.25 GM in DEXTROSE 5% 50 ML IV SCH ×3 (05:21→20:19)
[2020-11-13] MEDS: CALCIUM CARBONATE 500 MG TAB GT SCH (08:25)
[2020-11-13] MEDS: SEVELAMER CARBONATE 800 MG TAB PO SCH ×3 (08:25→17:45)
[2020-11-13] MEDS: SODIUM BICARBONATE 650 MG TAB PO SCH ×2 (08:26→20:20)
[2020-11-13] MEDS: PANTOPRAZOLE 40 MG INJ VIAL IVP SCH (08:26)
[2020-11-13] MEDS: DEXAMETHASONE 4 MG/ML VIAL IVP SCH (08:26)
[2020-11-13] MEDS: ASCORBIC ACID 500 MG TAB PO SCH (08:26)
[2020-11-13] MEDS: ZINC SULF 220 MG CAP PO SCH (08:27)
[2020-11-13] MEDS: METOPROLOL 25 MG TAB PO SCH ×2 (08:28→20:20)
[2020-11-13] MEDS: SODIUM BICARBONATE 8.4% 100 MEQ in DEXTROSE 5% 1,000 ML IV SCH (09:37)
[2020-11-13] MEDS ORDERED: METOCLOPRAMIDE 10 MG/2 ML INJ VIAL IVP PRN ×2 (11:55→12:45)
[2020-11-13 11:56] LABS: ANION GAP 18.1 (8-16); CARBON DIOXIDE 26.7 mmol/L (21-32); POTASSIUM 4.8 mmol/L (3.5-5.1)
[2020-11-13 11:59] LABS: CREATININE 6.9 mg/dL (0.6-1.3)
[2020-11-13] MEDS: MIDAZOLAM MDV 100 MG in NACL 0.9% 80 ML IV PRN (12:19)
[2020-11-13] MEDS ORDERED: NACL 0.9% 500 ML IV SCH (14:00)
[2020-11-13] MEDS ORDERED: SODIUM BICARBONATE 8.4% PFS 50 MEQ/50 ML SYR IVP SCH (15:00)
[2020-11-13] MEDS: NOREPINEPHRINE 16 MG in DEXTROSE 5% 250 ML IV PRN (16:01)
[2020-11-14] VITALS: BP 118/70
[2020-11-14 01:00] VITALS: BP 130/78
[2020-11-14 01:15] VITALS: BP 130/78
[2020-11-14 02:00] VITALS: BP 102/56
[2020-11-14 03:00] VITALS: BP 131/77
[2020-11-14 04:00] VITALS: BP 116/64
== END 2020-11-14 07:30 | DRG 207 ==
LOC: MED 12:36 → MMU 13:55 → MTU 15:42 → MMU 10-23 21:50 → MIC 10-26 22:30
PROVIDERS: ADMIT Family Medicine; ATTEND Family Medicine
PROC: XW033E5 Introduction of Remdesivir Anti-infective into Peripheral Vein, Percutaneous Approach, New Technology Group 5 (ICD-10-PCS; 2020-10-10)
PROC: XW13325 Transfusion of Convalescent Plasma (Nonautologous) into Peripheral Vein, Percutaneous Approach, New Technology Group 5 (ICD-10-PCS; 2020-10-16)
PROC: 5A1955Z Respiratory Ventilation, Greater than 96 Consecutive Hours (ICD-10-PCS; principal; 2020-10-23)
PROC: 0BH17EZ Insertion of Endotracheal Airway into Trachea, Via Natural or Artificial Opening (ICD-10-PCS; 2020-10-23)
PROC: 02HV33Z Insertion of Infusion Device into Superior Vena Cava, Percutaneous Approach (ICD-10-PCS; 2020-10-25)
PROC: 5A1D70Z Performance of Urinary Filtration, Intermittent, Less than 6 Hours Per Day (ICD-10-PCS; 2020-10-25)
PROC: 5A1D70Z Performance of Urinary Filtration, Intermittent, Less than 6 Hours Per Day (ICD-10-PCS; 2020-10-26)
PROC: 5A1D70Z Performance of Urinary Filtration, Intermittent, Less than 6 Hours Per Day (ICD-10-PCS; 2020-10-27)
PROC: 02HV33Z Insertion of Infusion Device into Superior Vena Cava, Percutaneous Approach (ICD-10-PCS; 2020-10-28)
PROC: B548ZZA Ultrasonography of Superior Vena Cava, Guidance (ICD-10-PCS; 2020-10-28)
PROC: 5A1D70Z Performance of Urinary Filtration, Intermittent, Less than 6 Hours Per Day (ICD-10-PCS; 2020-10-28)
PROC: 5A1D70Z Performance of Urinary Filtration, Intermittent, Less than 6 Hours Per Day (ICD-10-PCS; 2020-10-30)
PROC: 02PYX3Z Removal of Infusion Device from Great Vessel, External Approach (ICD-10-PCS; 2020-10-31)
PROC: 02H633Z Insertion of Infusion Device into Right Atrium, Percutaneous Approach (ICD-10-PCS; 2020-10-31)
PROC: 5A1D70Z Performance of Urinary Filtration, Intermittent, Less than 6 Hours Per Day (ICD-10-PCS; 2020-11-01)
PROC: 5A1D70Z Performance of Urinary Filtration, Intermittent, Less than 6 Hours Per Day (ICD-10-PCS; 2020-11-02)
PROC: 5A1D70Z Performance of Urinary Filtration, Intermittent, Less than 6 Hours Per Day (ICD-10-PCS; 2020-11-04)
PROC: 30233N1 Transfusion of Nonautologous Red Blood Cells into Peripheral Vein, Percutaneous Approach (ICD-10-PCS; 2020-11-05)
PROC: 5A1D70Z Performance of Urinary Filtration, Intermittent, Less than 6 Hours Per Day (ICD-10-PCS; 2020-11-05)
PROC: 5A1D70Z Performance of Urinary Filtration, Intermittent, Less than 6 Hours Per Day (ICD-10-PCS; 2020-11-07)
PROC: 5A1D70Z Performance of Urinary Filtration, Intermittent, Less than 6 Hours Per Day (ICD-10-PCS; 2020-11-08)
PROC: 5A1D70Z Performance of Urinary Filtration, Intermittent, Less than 6 Hours Per Day (ICD-10-PCS; 2020-11-09)
PROC: 0BH17EZ Insertion of Endotracheal Airway into Trachea, Via Natural or Artificial Opening (ICD-10-PCS; 2020-11-10)
PROC: 5A1D70Z Performance of Urinary Filtration, Intermittent, Less than 6 Hours Per Day (ICD-10-PCS; 2020-11-11)
PROC: 02HV33Z Insertion of Infusion Device into Superior Vena Cava, Percutaneous Approach (ICD-10-PCS; 2020-11-13)
PROC: B548ZZA Ultrasonography of Superior Vena Cava, Guidance (ICD-10-PCS; 2020-11-13)
PROC: 5A12012 Performance of Cardiac Output, Single, Manual (ICD-10-PCS; 2020-11-14)
PROC: 5A1D70Z Performance of Urinary Filtration, Intermittent, Less than 6 Hours Per Day (ICD-10-PCS; 2020-11-14)
DX: U07.1 COVID-19 (principal); E43 Unspecified severe protein-calorie malnutrition; J10.08 Influenza due to other identified influenza virus with other specified pneumonia; J12.82 Pneumonia due to coronavirus disease 2019; J96.01 Acute respiratory failure with hypoxia; J96.02 Acute respiratory failure with hypercapnia; N17.0 Acute kidney failure with tubular necrosis; N18.6 End stage renal disease; A41.9 Sepsis, unspecified organism; R65.21 Severe sepsis with septic shock; I12.0 Hypertensive chronic kidney disease with stage 5 chronic kidney disease or end stage renal disease; Z68.41 Body mass index [BMI] 40.0-44.9, adult; D68.59 Other primary thrombophilia; N39.0 Urinary tract infection, site not specified; E87.1 Hypo-osmolality and hyponatremia; E66.9 Obesity, unspecified; E78.5 Hyperlipidemia, unspecified; E87.5 Hyperkalemia; R13.11 Dysphagia, oral phase; Z99.2 Dependence on renal dialysis; E86.0 Dehydration; E11.22 Type 2 diabetes mellitus with diabetic chronic kidney disease; E83.41 Hypermagnesemia; I46.9 Cardiac arrest, cause unspecified; D64.9 Anemia, unspecified
CPT/HCPCS: 31500; 36415; 36600; 71045; 76770; 80048; 80053; 80202; 80305; 81001; 82150; 82550; 82553; 82728; 82803; 83036; 83605; 83615; 83690; 83735; 83880; 84100; 84436; 84439; 84443; 84479; 84484; 85025; 85379; 85384; 85610; 85651; 85730; 86140; 86886; 86900; 86901; 86920; 87040; 87070; 87081; 87086; 87205; 87420; 87804; 93005; 94002; 94003; 97110; 97112; 97116; 97161-GP; 97530; 99291; A4330; C9113; J0456; J0696; J1100; J1644; J1650; J2060; J2250; J2270; J2543; J2704; J2997; J3010; J3370; J3490; J3535; J7030; J7060; P9016; P9017; P9046; U0003